=== PATIENT | male | born 1945 | race Caucasian/White ===

== ENCOUNTER 2017-06-24 07:47 | Outpatient (CLI) | payer MEDICARE, BC ==
--- NOTE | 2017-06-24 11:08 | CT ---
CT ANGIOGRAM ABDOMEN AND PELVIS WITH AND WITHOUT IV CONTRAST AND 3D RECONSTRUCTIONS: Date: 06/24/17 HISTORY: Post EVAR repair of an abdominal aortic aneurysm. COMPARISON: 09/10/16. FINDINGS: There is a pneumothorax seen at the left lung base, likely related to a loculated left-sided pneumoth orax, but this was not present on the prior exam. There is mild pleural thickening also seen at the l eft lung base. Large calcified granuloma is present at the right lung base. Postsurgical changes related to repair of abdominal aortic aneurysm are again present with an aortobi iliac endograft noted in place. The aneurysm sac diameter is larger in size compared to the prior exa m, previously measuring 5.9 cm x 5.1 cm in maximal dimensions, and on current study measures 6.5 cm A P x 5.1 cm in maximal dimensions. There is now a focal area of enhancement seen within the aneurysm s ac suggesting endoleak. Celiac and superior mesenteric arteries are patent. There are two right and single left renal arterie s present. The origins of the inferiorly located right renal artery, as well as origin of the left re nal artery are not well visualized. The superiorly located right renal artery is patent. There is a subcentimeter, too small to characterize, hypodense lesion mid portion of right kidney wit h stable hypodense left cystic superior pole left renal lesion again seen which does demonstrate atte nuation coefficient most suggestive of a cyst. The liver demonstrates diminished attenuation related to diffuse fatty infiltration. Spleen, pancreas , and bilateral adrenal glands, as well as urinary bladder, demonstrate a normal CT appearance for ar terial phase of imaging. There is colonic diverticulosis. Fat-containing ventral abdominal wall hernia is again present. IMPRESSION: 1. Pneumothorax at the left lung base which is an interval change from the prior study. This likely represents a loculated pneumothorax. No additional intervening studies are available to document stab ility of this pneumothorax. 2. 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 There is an eccentric low density area seen within the junction of the mid and distal p ortion of the right iliac limb of the graft. The margins of this do not appear well circumscribed, an d this is thought to more likely be related to mixing of contrast in this region. The external iliac and common femoral arteries are patent with atherosclerotic vascular calcifications present. 3. Additional incidental findings are as described above. Above findings concerning pneumothorax at left lung base were discussed with Dr. Mendoza on 06/24/17 a t 13:12 hours. CODE CR. POS: [facility]
[2017-06-24] MEDS ORDERED: ISOVUE-370 76%-LOCM 1 ML ONE (17:17)
== END 2017-06-24 07:48 | disposition home or self-care (01) ==
LOC: CT 07:47
DX: I71.4 Abdominal aortic aneurysm, without rupture (principal); J93.9 Pneumothorax, unspecified
CPT/HCPCS: 74174

== ENCOUNTER 2017-07-27 14:32 | Inpatient (IN) | payer MEDICARE, BC ==
[2017-07-27 15:34] LABS: #Lymphocytes 0.8 thou/uL (1.20-3.40); #Monocytes 1.1 thou/uL (0.11-0.59); #Neutrophils 12.7 thou/uL (1.40-6.50); %Basophils 0.1 % (0.0-1.0); %Eosinophils 0.1 % (0.0-10.0); %Lymphocytes 5.7 % (21.0-51.0); %Monocytes 7.3 % (0.0-10.0); %Neutrophils 86.8 % (42.0-75.0); Hemoglobin 13.2 g/dL (14.0-18.0); Mean Corpuscular HGB CONC 33.1 g/dL (32.0-36.0); Mean Corpuscular Volume 87.8 fl (80.0-94.0); Mean Platelet Volume 7.7 fL (7.4-10.4); Platelet Count 186 thou/uL (130-400); RBC Distribution Width 15.7 % (11.5-14.5); Red Blood Cell (RBC) Count 4.56 mill/uL (4.70-6.10); White Blood Cell (WBC) Count 14.7 thou/uL (4.8-10.8)
[2017-07-27 15:52] LABS: ALT (SGPT) 22 U/L (8-55); AST (SGOT) 25 U/L (5-34); Alkaline Phosphatase 73 U/L (40-150); Anion Gap 16 mmol/L (10-20); BUN (Urea Nitrogen) 16 mg/dL (8.4-25.7); Bilirubin, Total 1.1 mg/dL (0.2-1.2); Calc. Creatinine Clearance 0 mL/min (70-130); Calcium 10.1 mg/dL (7.8-10.44); Carbon Dioxide 23 mmol/L (23-31); Chloride 100 mmol/L (98-107); Estimated GFR-MDRD 56; Globulin 3.5 g/dL (2.4-3.5); Glucose 197 mg/dL (83-110); Potassium 4.4 mmol/L (3.5-5.1); Protein, Total 7.5 g/dL (5.8-8.1); Sodium 135 mmol/L (136-145)
[2017-07-27 15:56] LABS: CKMB 0.5 ng/mL (0-6.6); Troponin I 0.019 ng/mL (< 0.028)
[2017-07-27 17:12] LABS: CK (CPK) 57 U/L (30-200); Lipase 12 U/L (8-78)
--- NOTE | 2017-07-27 17:20 | RAD ---
CHEST ONE VIEW 07/27/17 HISTORY: Dyspnea. COMPARISON: Chest two view 10/18/16. FINDINGS: Chronic pleural and parenchymal changes left lung base. There is a new nodule right lung base. The ca rdiac silhouette and mediastinal contours are similar. No pneumothorax. IMPRESSION: 1. Post thoracotomy changes of left hemithorax. Chronic pleural and parenchymal changes. 2. The right lower lung nodule seen on the prior CT examination is a calcified granuloma. 3. Left lower lobe likely a bulla. POS: [facility]
[2017-07-27 17:42] LABS: Bilirubin Negative (Negative); Blood, Urine Negative (Negative); Clarity CLEAR (Clear); Glucose, Urine (Dipstick) Negative (Negative); Leukocyte Negative (Negative); Nitrite Negative (Negative); Protein, Urine (Dipstick) 30 mg/dL (Neg-Trace); Specific Gravity, Urine 1.024 (1.002-1.036)
[2017-07-27 17:44] LABS: Bacteria/HPF None Seen HPF (None Seen); Hyaline Casts/LPF 0-3 HYALINE CAST LPF (0-3 Hyaline); Pathc Cast-AUWi Flag 0.13 (0-2.49); RBC/HPF 0-3 HPF (0-3); Squamous Epithelial 0-3 HPF (0-3); WBC/HPF 0-3 HPF (0-3)
[2017-07-27] MEDS ORDERED: Ondansetron HCl/PF 4 MG/2 ML Vial IVP PRN (18:14)
[2017-07-27] MEDS ORDERED: Bisacodyl 5 MG TAB PO PRN (18:14)
[2017-07-27] MEDS ORDERED: cefTRIAXone\\ROCEPHIN 1 GM in Sodium Chloride 0.9% 100 ML IVPB SCH (18:15)
[2017-07-27 18:44] LABS: Troponin I 0.025 ng/mL (< 0.028)
[2017-07-27] MEDS ORDERED: Dextrose 50% Abboject 50 ML SYRINGE SLOW IVP PRN (18:58)
[2017-07-27] MEDS ORDERED: Dextrose 5% in Water 1,000 ML IV PRN (18:58)
[2017-07-27] MEDS ORDERED: VANCOMYCIN/ RENALLY ADJUST ANTIBIOTICS IVPB PRN (18:59)
--- NOTE | 2017-07-27 19:28 | HP ---
PRIMARY CARE PHYSICIAN: Nga Graham M.D. CHIEF COMPLAINT: Generalized weakness. HISTORY OF PRESENT ILLNESS: Mr. Hurst is a pleasant 71-year-old gentleman who was seen at [facility] on 07/27/2017. He reportedly had an episode of weakness 3 days ago when he got up during the night to go to the bath room. He reportedly fell down while getting back into the bed, but did not hit his head. He continu ed to be weak whole of yesterday. Today, he got up, made coffee and then went to bed. Subsequently, he got up and went to the bathroom. He could not get up from the commode. EMS was called and he wa s brought to the emergency room. He denies fever, but reports having chills. He denies any vomiting. He denies any shortness of cathryn th. He denies any dysuria or increased frequency of urination. He denies any diarrhea. REVIEW OF SYSTEMS: The following complete review of systems was negative, unless otherwise mentioned in the HPI or below: Constitutional: Weight loss or gain, ability to conduct usual activities. Skin: Rash, itching. Eyes: Double vision, pain. ENT/Mouth: Nose bleeding, neck stiffness, pain, tenderness. Cardiovascular: Palpitations, dyspnea on exertion, orthopnea. Respiratory: Shortness of breath, wheezing, cough, hemoptysis, fever or night sweats. Gastrointestinal: Poor appetite, abdominal pain, heartburn, nausea, vomiting, constipation, or diarr hea. Genitourinary: Urgency, frequency, dysuria, nocturia. Musculoskeletal: Pain, swelling. Neurologic/Psychiatric: Anxiety, depression. Allergy/Immunologic: Skin rash, bleeding tendency. PAST MEDICAL HISTORY: Significant for hypertension, dyslipidemia, coronary artery disease, hypothyro idism, atrial fibrillation, obstructive sleep apnea syndrome, abdominal aortic aneurysm status post r epair and lung mass, status post surgery and diabetes mellitus type 2. PAST SURGICAL HISTORY: Significant for a lung mass resection, coronary artery bypass graft x3, abdom inal aortic aneurysm repair, colonoscopy and synovial cyst removed from back. FAMILY HISTORY: His father of heart attack. SOCIAL HISTORY: The patient is an ex-smoker. He drinks alcohol occasionally. He denies any recreat ional drug use. ALLERGIES: No known drug allergies. CURRENT MEDICATIONS: Include aspirin 81 mg daily, levothyroxine 175 mcg daily, metformin 500 mg 2 ti mes a day, atorvastatin 40 mg daily, Spiriva 18 mcg inhalation daily, digoxin 125 mcg daily and Eliqu is 5 mg 2 times a day. CODE STATUS: I discussed his code status. He is FULL CODE. PHYSICAL EXAMINATION: GENERAL: Mr. Hurst is awake and alert, not in acute distress. VITAL SIGNS: Blood pressure is 127/69, pulse is 91. His breathing at rate of 25 and saturating 97% on room air. He is afebrile. EYES: No scleral icterus. No conjunctival pallor. ENT: Dry mucosal membranes, no oropharyngeal erythema or exudates. NECK: Supple, nontender, normal range of movement. Trachea is midline. RESPIRATORY: Accessory muscles of breathing are not active. Chest wall movements are symmetric bila terally. LUNGS: Clear to auscultation, without wheeze, rhonchi or crepitations. CARDIOVASCULAR: S1 and S2 are heard, regular. LUNGS: Peripheral pulses palpable. No carotid bruit, no pericardial rub. ABDOMEN: Soft, nontender, bowel sounds heard, no hepatomegaly, no splenomegaly. SKIN: No rashes or subcutaneous nodules. MUSCULOSKELETAL: Power is 5/5 in all 4 extremities. Normal range of movement at all major extremity joints. NEUROLOGIC: Cranial nerves II-XII are intact. Deep tendon reflexes are 2+. LYMPHATIC: No cervical lymphadenopathy. PSYCHIATRIC: Normal mood, normal affect, patient is oriented to person, place, and time. LABORATORY DATA: Mr. Horner labs and investigations were reviewed. I reviewed his electrocardiog stan, which shows normal sinus rhythm, no ST changes to suggest an acute coronary syndrome. I also re viewed his chest x-ray, which does not show any pulmonary infiltrates. He has leukocytosis with 14,7 00 white cells, of which 86.8% are neutrophils. He has normocytic anemia with hemoglobin 13.2 and a normal platelet count. He is hyponatremic, with sodium of 135, normal potassium, normal creatinine, elevated lactic acid of 2.8, unremarkable liver profile, normal lipase and troponin I that is normal x2. Urinalysis is positive only for protein. ASSESSMENT AND PLAN: Mr. Hurst is a pleasant 71-year-old gentleman who was seen at [facility] on 07/27/2017. His problem list includes: 1. Sepsis: Mr. Hurst' presentation meets the criteria for sepsis, with suspected source of infec tion either in the respiratory tract given his history of cough or bloodstream, given his history of chills. He will be admitted to the hospital and started on broad spectrum antibiotics, including van comycin, ceftriaxone and azithromycin. I will await blood cultures. I should note that his influenz a screen is negative. 2. Generalized weakness: Most likely secondary to sepsis. We will request walking program consulta tion. 3. Coronary artery disease: Appears stable. 4. Hypothyroidism: We will continue Synthroid. We will check TSH level. 5. Diabetes mellitus. Start Accu-Cheks, insulin sliding scale. 6. Hyponatremia: Mild, likely asymptomatic. I will recheck his sodium level. 7. Atrial fibrillation: He had Watchman procedure in the past. We will continue Eliquis, and digox in. 8. Pulmonary nodule: He has a pulmonary nodule in the right lower lobe. The radiologist impression is that it is a calcified granuloma also seen on prior CT examination. Many thanks for allowing me to participate in your patient's care. Please feel free to contact me wi th any questions or concerns. LEVEL OF RISK: High. LEFT OF COMPLEXITY: High.
[2017-07-27 19:29] VITALS: BMI 31.1
[2017-07-27] MEDS: Sodium Chloride 0.9% 1,000 ML IV SCH (20:29)
[2017-07-27 21:06] LABS: Lactic Acid 2.6 mmol/L (0.5-2.2)
[2017-07-27 21:10] LABS: Troponin I 0.025 ng/mL (< 0.028)
[2017-07-27] MEDS: Vancomycin HCl 1.25 GM in Sodium Chloride 0.9% 250 ML 250 ML IVPB SCH ×2 (21:43→22:52)
[2017-07-27] MEDS: Azithromycin 500 MG in Sodium Chloride 0.9% 250 ML 250 ML IVPB SCH (21:44)
[2017-07-28 05:31] LABS: #Lymphocytes 1.2 thou/uL (1.20-3.40); #Monocytes 1.5 thou/uL (0.11-0.59); #Neutrophils 12.6 thou/uL (1.40-6.50); %Basophils 0.1 % (0.0-1.0); %Lymphocytes 7.9 % (21.0-51.0); %Monocytes 9.6 % (0.0-10.0); %Neutrophils 82.3 % (42.0-75.0); Hemoglobin 11.7 g/dL (14.0-18.0); Mean Corpuscular HGB CONC 33.3 g/dL (32.0-36.0); Mean Corpuscular Hemoglobin 29.4 pg (27.0-31.0); Mean Corpuscular Volume 88.1 fl (80.0-94.0); Mean Platelet Volume 7.5 fL (7.4-10.4); Platelet Count 152 thou/uL (130-400); RBC Distribution Width 15.7 % (11.5-14.5); Red Blood Cell (RBC) Count 3.98 mill/uL (4.70-6.10); White Blood Cell (WBC) Count 15.3 thou/uL (4.8-10.8)
[2017-07-28 05:41] LABS: Anion Gap 13 mmol/L (10-20); BUN (Urea Nitrogen) 13 mg/dL (8.4-25.7); Calc. Creatinine Clearance 87 mL/min (70-130); Calcium 9.1 mg/dL (7.8-10.44); Carbon Dioxide 24 mmol/L (23-31); Chloride 100 mmol/L (98-107); Estimated GFR-MDRD 59; Glucose 210 mg/dL (83-110); Potassium 3.8 mmol/L (3.5-5.1); Sodium 133 mmol/L (136-145)
[2017-07-28] MEDS: Sodium Chloride 0.9% 1,000 ML IV SCH ×2 (06:31→08:51)
[2017-07-28] MEDS: HumaLOG 300 UNITS/3 ML VIAL SC PRN ×3 (08:53→18:22)
[2017-07-28] MEDS ORDERED: FLU VACC TS2017-18 (>65YR) 0.5 ML SYRINGE IM ONE (09:00)
[2017-07-28] MEDS: Vancomycin HCl 1.25 GM in Sodium Chloride 0.9% 250 ML 250 ML IVPB SCH ×2 (09:58→21:44)
--- NOTE | 2017-07-28 11:32 | PDOC.PN ---
- Subjective Encounter Start Date: 07/28/17 Encounter Start Time: 11:30 Patient seen and examined, states he feels better than yesterday but not fully back to normal. Was able to ambulate to the bathroom but got short of breath after this. at bedside, all questions answered. - Objective Resuscitation Status: Resuscitation Status FULL:Full Resuscitation Vital Signs & Weight: Vital Signs (12 hours) Temp Pulse Resp BP BP Pulse Ox 07/28/17 07:20 98.9 F 93 20 119/63 119/63 95 07/28/17 04:00 98.5 F 91 16 115/66 94 L 07/28/17 01:11 97 18 07/28/17 00:00 98.9 F 94 20 111/56 L 97 07/27/17 23:46 96 Weight Weight 242 lb 3.2 oz I&O: 07/27/17 07/28/17 07/29/17 06:59 06:59 06:59 Intake Total 2138 Output Total 575 Balance 1563 Result Diagrams: 07/28/17 05:08 07/28/17 05:08 Additional Labs: Accuchecks 07/28/17 07/27/17 05:42 21:05 POC Glucose 231 H 318 H Phys Exam - Physical Examination Constitutional: NAD HEENT: PERRLA, moist MMs Neck: no nodes, no JVD coughing, coarse breathe sounds Cardiovascular: RRR, no significant murmur Gastrointestinal: soft, non-tender Musculoskeletal: pulses present, edema present (trace) Neurological: non-focal, normal sensation Lymphatic: no nodes Psychiatric: normal affect, A&O x 3 Skin: no rash, normal turgor Dx/Plan (1) URI (upper respiratory infection) Code(s): J06.9 - ACUTE UPPER RESPIRATORY INFECTION, UNSPECIFIED Status: Acute (2) Paroxysmal atrial fibrillation Code(s): I48.0 - PAROXYSMAL ATRIAL FIBRILLATION Status: Acute (3) CAD (coronary artery disease) Code(s): I25.10 - ATHSCL HEART DISEASE OF [place] CORONARY ARTERY W/O ANG PCTRS Status: Chronic (4) Diabetes type 2, controlled Code(s): E11.9 - TYPE 2 DIABETES MELLITUS WITHOUT COMPLICATIONS Status: Chronic (5) Dyslipidemia Code(s): E78.5 - HYPERLIPIDEMIA, UNSPECIFIED Status: Chronic (6) Hypertension Code(s): I10 - ESSENTIAL (PRIMARY) HYPERTENSION Status: Chronic (7) Hypothyroidism Code(s): E03.9 - HYPOTHYROIDISM, UNSPECIFIED Status: Chronic (8) Obesity (BMI 30.0-34.9) Code(s): E66.9 - OBESITY, UNSPECIFIED Status: Chronic - Plan * continue with abx for now * afebrile * labs acceptable * patient slowly starting to ambulate * continue current plan of care w/ no changes * case and plan d/w patient and at length, they understand and agree with this plan
[2017-07-28] MEDS ORDERED: cefTRIAXone\\ROCEPHIN 1 GM, Syringe 0.4 ML in Sterile Water 9.6 ML SLOW IVP SCH (17:00)
[2017-07-28] MEDS ORDERED: Furosemide 40 MG/4 ML VIAL SLOW IVP SCH (19:00)
[2017-07-28] MEDS ORDERED: Nitroglycerin 0.4 MG TAB (25 Tab Bottle) SL PRN (19:52)
--- NOTE | 2017-07-28 19:55 | RAD ---
CHEST ONE VIEW: History: Weakness. Comparison: Prior day. FINDINGS: There is a lingular airspace opacity. There appears to be a bullae in the left lung base. Left effusi on is present. Right lung is relatively clear. IMPRESSION: 1. Worsening lingular airspace opacity as well as enlargement of left layering pleural effusion. 2. Bullae in the left lung base. POS: [facility]
[2017-07-28] MEDS: Azithromycin 500 MG in Sodium Chloride 0.9% 250 ML 250 ML IVPB SCH (20:21)
[2017-07-28] MEDS ORDERED: Simvastatin 40 MG TAB PO SCH (21:00)
[2017-07-29] MEDS ORDERED: Levothyroxine Sodium 100 MCG TAB PO SCH (06:00)
[2017-07-29] MEDS ORDERED: Nitroglycerin 0.4 MG TAB (25 Tab Bottle) SL PRN (08:26)
[2017-07-29] MEDS ORDERED: Digoxin 0.125 MG TAB PO SCH (09:00)
[2017-07-29] MEDS ORDERED: Multivit, Therapeutic 1 TAB PO SCH (09:00)
[2017-07-29 09:25] LABS: #Lymphocytes 1.1 thou/uL (1.20-3.40); #Monocytes 1.1 thou/uL (0.11-0.59); #Neutrophils 12.2 thou/uL (1.40-6.50); %Basophils 0.1 % (0.0-1.0); %Eosinophils 0.1 % (0.0-10.0); %Lymphocytes 7.5 % (21.0-51.0); %Monocytes 7.4 % (0.0-10.0); %Neutrophils 84.9 % (42.0-75.0); Hemoglobin 11.3 g/dL (14.0-18.0); Mean Corpuscular Hemoglobin 29.9 pg (27.0-31.0); Mean Platelet Volume 7.9 fL (7.4-10.4); Platelet Count 149 thou/uL (130-400); RBC Distribution Width 15.7 % (11.5-14.5); Red Blood Cell (RBC) Count 3.77 mill/uL (4.70-6.10); White Blood Cell (WBC) Count 14.4 thou/uL (4.8-10.8)
[2017-07-29 09:33] LABS: Vancomycin, Trough 7.8 ug/mL
[2017-07-29 09:34] LABS: Anion Gap 13 mmol/L (10-20); BUN (Urea Nitrogen) 9 mg/dL (8.4-25.7); Calc. Creatinine Clearance 91 mL/min (70-130); Calcium 9.1 mg/dL (7.8-10.44); Carbon Dioxide 23 mmol/L (23-31); Chloride 102 mmol/L (98-107); Estimated GFR-MDRD 62; Glucose 252 mg/dL (83-110); Potassium 3.7 mmol/L (3.5-5.1); Sodium 134 mmol/L (136-145)
[2017-07-29] MEDS: Clopidogrel Bisulfate 75 MG TAB PO SCH (10:23)
[2017-07-29] MEDS: Aspirin 81 mg Enteric Coated Tablet PO SCH (10:23)
[2017-07-29] MEDS: Digoxin 0.125 MG TAB PO SCH (10:23)
[2017-07-29] MEDS: Multivit, Therapeutic 1 TAB PO SCH (10:24)
[2017-07-29] MEDS: Vancomycin HCl 1.25 GM in Sodium Chloride 0.9% 250 ML 250 ML IVPB SCH (10:25)
[2017-07-29] MEDS: Vancomycin HCl 1.5 GM in Sodium Chloride 0.9% 250 ML 300 ML IVPB SCH ×2 (11:47→18:53)
[2017-07-29] MEDS: HumaLOG 300 UNITS/3 ML VIAL SC PRN ×2 (11:58→17:34)
--- NOTE | 2017-07-29 13:08 | PDOC.PN ---
- Subjective Encounter Start Date: 07/29/17 Encounter Start Time: 08:00 Pt seen for followup re: sepsis. Had fever yesterday. Denies nausea or vomiting. Reports weakness. - Objective Resuscitation Status: Resuscitation Status FULL:Full Resuscitation MAR Reviewed: Yes Vital Signs & Weight: Vital Signs (12 hours) Temp Pulse Resp BP BP Pulse Ox 07/29/17 11:50 99.5 F 93 16 126/62 95 07/29/17 10:22 97.8 F 94 20 130/73 97 07/29/17 09:45 97.8 F 94 20 07/29/17 04:00 97 18 111/56 L Weight Weight 242 lb 3.2 oz I&O: 07/28/17 07/29/17 07/30/17 06:59 06:59 06:59 Intake Total 2138 1994 Output Total 575 1775 Balance 1563 220 Result Diagrams: 07/29/17 09:01 07/29/17 09:01 Additional Labs: Accuchecks 07/29/17 07/29/17 07/28/17 11:56 05:27 20:35 POC Glucose 242 H 183 H 179 H 07/28/17 17:29 POC Glucose 196 H EKG Reviewed by me: Yes (Tele: NSR) Phys Exam - Physical Examination Obese HEENT: PERRLA, moist MMs, sclera anicteric, oral pharynx no lesions Neck: no nodes, no JVD, supple, full ROM Respiratory: no wheezing, no rales, no rhonchi, clear to auscultation bilateral Cardiovascular: RRR, no rub Gastrointestinal: soft, non-tender, positive bowel sounds Neurological: moves all 4 limbs Psychiatric: normal affect, A&O x 3 Dx/Plan (1) Sepsis Code(s): A41.9 - SEPSIS, UNSPECIFIED ORGANISM Status: Acute (2) Paroxysmal atrial fibrillation Code(s): I48.0 - PAROXYSMAL ATRIAL FIBRILLATION Status: Chronic (3) AAA (abdominal aortic aneurysm) Code(s): I71.4 - ABDOMINAL AORTIC ANEURYSM, WITHOUT RUPTURE Status: Chronic (4) CAD (coronary artery disease) Code(s): I25.10 - ATHSCL HEART DISEASE OF [place] CORONARY ARTERY W/O ANG PCTRS Status: Chronic (5) Diabetes type 2, controlled Code(s): E11.9 - TYPE 2 DIABETES MELLITUS WITHOUT COMPLICATIONS Status: Chronic (6) Dyslipidemia Code(s): E78.5 - HYPERLIPIDEMIA, UNSPECIFIED Status: Chronic (7) Hypertension Code(s): I10 - ESSENTIAL (PRIMARY) HYPERTENSION Status: Chronic (8) Hypothyroidism Code(s): E03.9 - HYPOTHYROIDISM, UNSPECIFIED Status: Chronic (9) Obesity (BMI 30.0-34.9) Code(s): E66.9 - OBESITY, UNSPECIFIED Status: Chronic - Plan continue antibiotics, PT/OT, out of bed/ambulate * . Pt continues to spike fevers, change ceftriaxone to IV meropenem. Await blood cultures. Urine cultures negative (final). Continue accuchecks, insulin sliding scale. If blood cultures positive, may need ID consult (pt had AAA repair). Ambulate patient. Review of Systems - Review of Systems Constitutional: fever, weakness. negative: chills, sweats, malaise Respiratory: negative: Cough, Dry, Shortness of Breath, Hemoptysis, SOB with Excertion, Pleuritic Pain, Sputum, Wheezing Cardiovascular: negative: chest pain, palpitations, orthopnea, paroxysmal nocturnal dyspnea, edema, light headedness Gastrointestinal: negative: Nausea, Vomiting, Abdominal Pain, Diarrhea, Constipation, Melena, Hematochezia Genitourinary: negative: Dysuria, Frequency, Incontinence, Hematuria, Retention - Medications/Allergies Allergies/Adverse Reactions: Allergies Allergy/AdvReac Type Severity Reaction Status Date / Time amoxicillin AdvReac Mild Rash Verified 12/21/16 15:26 Medications: Current Medications Albuterol/Ipratropium (Duoneb) 3 ml NEB Q6H PRN PRN Reason: SOB &/or Wheezing Last Admin: 07/28/17 19:11 Dose: 3 ml Aspirin (Ecotrin) 81 mg PO DAILY [facility] Last Admin: 07/29/17 10:23 Dose: 81 mg Atorvastatin Calcium (Lipitor) 20 mg PO HS [facility] Bisacodyl (Dulcolax) 10 mg PO DAILYPRN PRN PRN Reason: Constipation Clopidogrel Bisulfate (Plavix) 75 mg PO DAILY [facility] Last Admin: 07/29/17 10:23 Dose: 75 mg Dextrose/Water (Dextrose 50%) 25 gm SLOW IVP PRN PRN PRN Reason: Hypoglycemia Digoxin (Lanoxin) 0.125 mg PO DAILY [facility] Last Admin: 07/29/17 10:23 Dose: 0.125 mg Glucagon (Glucagon) 1 mg IM PRN PRN PRN Reason: Hypoglycemia Azithromycin 500 mg/ Sodium (Chloride) 250 mls @ 250 mls/hr IVPB Q24HR [facility] Last Admin: 07/28/17 20:21 Dose: 250 mls Ceftriaxone Sodium 1 gm/ (Syringe 0.4 ml/ Sterile Water) 10 mls @ 120 mls/hr SLOW IVP 1700 [facility] Last Admin: 07/28/17 17:42 Dose: 10 mls Dextrose/Water (D5w) 1,000 mls @ 0 mls/hr IV .Q0M PRN; As Directed PRN Reason: Hypoglycemia Vancomycin HCl 1.5 gm/ Sodium (Chloride) 300 mls @ 200 mls/hr IVPB 0200,1000, 1800 [facility] Last Admin: 07/29/17 11:47 Dose: 300 mls Insulin Human Lispro (Humalog) 0 units SC .MILD SLIDING SCALE PRN PRN Reason: Mild Correctional Scale Last Admin: 07/29/17 11:58 Dose: 3 unit Levothyroxine Sodium (Synthroid) 200 mcg PO 0600 [facility] Metformin HCl (Glucophage) 500 mg PO BID-[facility] Miscellaneous Medication (Pharmacy To Dose) 1 each IVPB PRN PRN PRN Reason: Pharmacy to dose Multivitamins (Theragran) 1 tab PO DAILY [facility] Last Admin: 07/29/17 10:24 Dose: 1 tab Nitroglycerin (Nitrostat) 0.4 mg SL Q5MIN PRN PRN Reason: Chest Pain Ondansetron HCl (Zofran) 4 mg IVP Q6H PRN PRN Reason: Nausea/Vomiting Sodium Chloride (Flush - Normal Saline) 10 ml IVF Q12HR [facility] Last Admin: 07/29/17 10:24 Dose: 10 ml Sodium Chloride (Flush - Normal Saline) 10 ml IVF PRN PRN PRN Reason: Saline Flush
[2017-07-29] MEDS ORDERED: Meropenem 1 GM in Sodium Chloride 0.9% 100 ML IVPB SCH (14:00)
[2017-07-29] MEDS: Meropenem 1 GM in Sterile Water 20 ML SLOW IVP SCH ×2 (15:22→21:34)
[2017-07-29] MEDS: Acetaminophen 325 MG TAB PO PRN (17:34)
[2017-07-29] MEDS: metFORMIN 500 MG TAB PO SCH (17:34)
[2017-07-29] MEDS: Azithromycin 500 MG in Sodium Chloride 0.9% 250 ML 250 ML IVPB SCH (21:34)
[2017-07-29] MEDS: Atorvastatin Calcium 20 MG TAB PO SCH (21:34)
--- NOTE | 2017-07-30 00:25 | CON ---
DATE OF CONSULTATION: 07/29/2017 REASON FOR CONSULTATION: Atrial arrhythmias. HISTORY OF PRESENT ILLNESS: Mr. Hurst is a very pleasant 71-year-old man. The patient has a long complicated cardiac history as well as other medical history relatively complicated. Patient was admitted on this occasion with systemic inflammatory response and came to the hospital wi th generalized weakness, and fell when he tried to get up out of bed at night. He had no fever, but did have chills. REVIEW OF SYSTEMS: Constitutional: No significant weight gain or loss. Vision: No changes. Heari ng: No changes. Pulmonary: Positive for cough and wheezing. Cardiac: No chest pain. Gastrointest inal: No nausea, vomiting, diarrhea. Skin: No rashes. Neurologic: No unilateral weakness or numb ness. Psychiatric: No unusual depression or anxiety. PAST MEDICAL HISTORY: 1. Previous coronary artery bypass grafting. 2. History of atrial fibrillation with transient ischemic attack. 3. History of gastrointestinal bleeding. 4. History of Watchman placement. 5. Abdominal aortic aneurysm treated percutaneously with further percutaneous therapy. 6. History of lung mass requiring surgery. PAST SURGICAL HISTORY: As outlined above. ALLERGIES: None. MEDICATIONS PRIOR TO ADMISSION: 1. Aspirin. 2. Plavix. 3. Atorvastatin. PHYSICAL EXAMINATION: GENERAL: This is a pleasant elderly gentleman in no distress. VITAL SIGNS: Blood pressure 117/69, pulse 90, it is irregular. EYES: Sclerae nonicteric. Mouth mucous membranes are moist. NECK: Supple, no lymphadenopathy. LUNGS: Currently not wheezing. He had some wheezing earlier, but it seemed to be upper airway when he coughed, it went away. CARDIAC: Normal S1, normal S2. ABDOMEN: Soft, nontender. EXTREMITIES: No clubbing, no cyanosis. There is no significant edema. LABORATORY AND X-RAY FINDINGS: EKG now sinus rhythm, earlier atrial tachycardia versus atrial flutte r. ASSESSMENT: 1. Paroxysmal atrial arrhythmia. 2. Coronary artery disease, previous bypass surgery. 3. History of Watchman implantation. 4. Abdominal aortic aneurysm repair. 5. ?Pneumonia versus systemic inflammatory response syndrome. PLAN: 1. Continue antibiotics. 2. Aspirin. 3. Plavix. 4. We will check BNP tomorrow. We will follow with you. 5. Continue digoxin.
[2017-07-30] MEDS: Vancomycin HCl 1.5 GM in Sodium Chloride 0.9% 250 ML 300 ML IVPB SCH ×2 (01:49→10:35)
[2017-07-30] MEDS: Levothyroxine Sodium 100 MCG TAB PO SCH (05:03)
[2017-07-30] MEDS: Meropenem 1 GM in Sterile Water 20 ML SLOW IVP SCH ×3 (05:03→23:57)
[2017-07-30 05:21] LABS: #Monocytes 0.9 thou/uL (0.11-0.59); %Basophils 0.2 % (0.0-1.0); %Eosinophils 0.2 % (0.0-10.0); %Lymphocytes 8.1 % (21.0-51.0); %Monocytes 7.9 % (0.0-10.0); %Neutrophils 83.5 % (42.0-75.0); Hemoglobin 11.3 g/dL (14.0-18.0); Mean Corpuscular Hemoglobin 29.2 pg (27.0-31.0); Mean Corpuscular Volume 88.6 fl (80.0-94.0); Mean Platelet Volume 7.6 fL (7.4-10.4); Platelet Count 158 thou/uL (130-400); RBC Distribution Width 15.6 % (11.5-14.5); Red Blood Cell (RBC) Count 3.86 mill/uL (4.70-6.10); White Blood Cell (WBC) Count 11.9 thou/uL (4.8-10.8)
[2017-07-30 05:50] LABS: Anion Gap 13 mmol/L (10-20); BUN (Urea Nitrogen) 10 mg/dL (8.4-25.7); Calc. Creatinine Clearance 104 mL/min (70-130); Carbon Dioxide 22 mmol/L (23-31); Chloride 103 mmol/L (98-107); Estimated GFR-MDRD 73; Glucose 181 mg/dL (83-110); Potassium 3.8 mmol/L (3.5-5.1); Sodium 134 mmol/L (136-145)
[2017-07-30] MEDS: Digoxin 0.125 MG TAB PO SCH (09:16)
[2017-07-30] MEDS: Multivit, Therapeutic 1 TAB PO SCH (09:16)
[2017-07-30] MEDS: Clopidogrel Bisulfate 75 MG TAB PO SCH (09:16)
[2017-07-30] MEDS: metFORMIN 500 MG TAB PO SCH ×2 (09:16→17:17)
[2017-07-30] MEDS: Aspirin 81 mg Enteric Coated Tablet PO SCH (09:18)
[2017-07-30 09:20] LABS: Vancomycin, Trough 21.1 ug/mL
--- NOTE | 2017-07-30 10:53 | PDOC.PN ---
- Subjective Encounter Start Date: 07/30/17 Encounter Start Time: 07:20 Pt seen for followup re: gout flare. Complains of left ankle pain, had gout flares in the past which felt the same. No fevers yesterday or today. No diarrhea. - Objective Resuscitation Status: Resuscitation Status FULL:Full Resuscitation MAR Reviewed: Yes Vital Signs & Weight: Vital Signs (12 hours) Temp Pulse Resp BP Pulse Ox 07/30/17 09:16 96 07/30/17 08:00 98.2 F 96 17 125/77 94 L 07/30/17 04:00 98.4 F 90 18 114/58 L 96 Weight Weight 242 lb 3.2 oz I&O: 07/29/17 07/30/17 07/31/17 06:59 06:59 06:59 Intake Total 1994 1310 120 Output Total 5 Balance 220 1310 120 Result Diagrams: 07/30/17 04:47 07/30/17 04:47 Additional Labs: Accuchecks 07/30/17 07/29/17 07/29/17 06:09 20:05 11:56 POC Glucose 184 H 210 H 242 H EKG Reviewed by me: Yes (Tele: a. charmaine) Phys Exam - Physical Examination Obesity HEENT: moist MMs Neck: supple Respiratory: clear to auscultation bilateral Cardiovascular: irregular Gastrointestinal: soft, non-tender, positive bowel sounds Musculoskeletal: pulses present L ankle mild swelling, tenderness Neurological: moves all 4 limbs Psychiatric: normal affect Dx/Plan (1) Gout flare Code(s): M10.9 - GOUT, UNSPECIFIED Status: Acute (2) Sepsis Code(s): A41.9 - SEPSIS, UNSPECIFIED ORGANISM Status: Acute (3) Paroxysmal atrial fibrillation Code(s): I48.0 - PAROXYSMAL ATRIAL FIBRILLATION Status: Chronic (4) AAA (abdominal aortic aneurysm) Code(s): I71.4 - ABDOMINAL AORTIC ANEURYSM, WITHOUT RUPTURE Status: Chronic (5) CAD (coronary artery disease) Code(s): I25.10 - ATHSCL HEART DISEASE OF [place] CORONARY ARTERY W/O ANG PCTRS Status: Chronic (6) Diabetes type 2, controlled Code(s): E11.9 - TYPE 2 DIABETES MELLITUS WITHOUT COMPLICATIONS Status: Chronic (7) Dyslipidemia Code(s): E78.5 - HYPERLIPIDEMIA, UNSPECIFIED Status: Chronic (8) Hypertension Code(s): I10 - ESSENTIAL (PRIMARY) HYPERTENSION Status: Chronic (9) Hypothyroidism Code(s): E03.9 - HYPOTHYROIDISM, UNSPECIFIED Status: Chronic (10) Obesity (BMI 30.0-34.9) Code(s): E66.9 - OBESITY, UNSPECIFIED Status: Chronic - Plan plan discussed w/ family, continue antibiotics, PT/OT, out of bed/ambulate, DVT proph w/SCDs * . Start colchicine trial. Continue IV antibiotics as below. Continue accuchecks, insulin. Ambulate patient. Discontinue antibiotics once final blood culture report available. Review of Systems - Review of Systems Constitutional: negative: fever, chills, sweats, weakness, malaise Respiratory: negative: Cough, Dry, Shortness of Breath, Hemoptysis, SOB with Excertion, Pleuritic Pain, Sputum, Wheezing Cardiovascular: negative: chest pain, palpitations, orthopnea, paroxysmal nocturnal dyspnea, edema, light headedness Musculoskeletal: Other (ankle pain) - Medications/Allergies Allergies/Adverse Reactions: Allergies Allergy/AdvReac Type Severity Reaction Status Date / Time amoxicillin AdvReac Mild Rash Verified 12/21/16 15:26 Medications: Current Medications Acetaminophen (Tylenol) 650 mg PO Q6H PRN PRN Reason: Headache/Fever or Pain Last Admin: 07/29/17 17:34 Dose: 650 mg Albuterol/Ipratropium (Duoneb) 3 ml NEB Q6H PRN PRN Reason: SOB &/or Wheezing Last Admin: 07/28/17 19:11 Dose: 3 ml Aspirin (Ecotrin) 81 mg PO DAILY [facility] Last Admin: 07/30/17 09:18 Dose: 81 mg Atorvastatin Calcium (Lipitor) 20 mg PO HS [facility] Last Admin: 07/29/17 21:34 Dose: 20 mg Bisacodyl (Dulcolax) 10 mg PO DAILYPRN PRN PRN Reason: Constipation Clopidogrel Bisulfate (Plavix) 75 mg PO DAILY [facility] Last Admin: 07/30/17 09:16 Dose: 75 mg Colchicine (Colcrys) 0.6 mg PO ONE [facility] Colchicine (Colcrys) 0.6 mg PO BID [facility] Stop: 07/31/17 09:01 Dextrose/Water (Dextrose 50%) 25 gm SLOW IVP PRN PRN PRN Reason: Hypoglycemia Digoxin (Lanoxin) 0.125 mg PO DAILY [facility] Last Admin: 07/30/17 09:16 Dose: 0.125 mg Glucagon (Glucagon) 1 mg IM PRN PRN PRN Reason: Hypoglycemia Azithromycin 500 mg/ Sodium (Chloride) 250 mls @ 250 mls/hr IVPB Q24HR [facility] Last Admin: 07/29/17 21:34 Dose: 250 mls Dextrose/Water (D5w) 1,000 mls @ 0 mls/hr IV .Q0M PRN; As Directed PRN Reason: Hypoglycemia Meropenem 1 gm/ Sterile Water 20 mls @ 240 mls/hr SLOW IVP Q8HR [facility] Last Admin: 07/30/17 05:03 Dose: 20 mls Vancomycin HCl 1.25 gm/ Sodium (Chloride) 250 mls @ 166.667 mls/hr IVPB 0400, 1200,2000 [facility] Insulin Human Lispro (Humalog) 0 units SC .MILD SLIDING SCALE PRN PRN Reason: Mild Correctional Scale Last Admin: 07/29/17 17:34 Dose: 3 unit Levothyroxine Sodium (Synthroid) 200 mcg PO 0600 [facility] Last Admin: 07/30/17 05:03 Dose: 200 mcg Metformin HCl (Glucophage) 500 mg PO BID-[facility] Last Admin: 07/30/17 09:16 Dose: 500 mg Miscellaneous Medication (Pharmacy To Dose) 1 each IVPB PRN PRN PRN Reason: Pharmacy to dose Multivitamins (Theragran) 1 tab PO DAILY [facility] Last Admin: 07/30/17 09:16 Dose: 1 tab Nitroglycerin (Nitrostat) 0.4 mg SL Q5MIN PRN PRN Reason: Chest Pain Ondansetron HCl (Zofran) 4 mg IVP Q6H PRN PRN Reason: Nausea/Vomiting Sodium Chloride (Flush - Normal Saline) 10 ml IVF Q12HR [facility] Last Admin: 07/30/17 09:17 Dose: 10 ml Sodium Chloride (Flush - Normal Saline) 10 ml IVF PRN PRN PRN Reason: Saline Flush
[2017-07-30] MEDS ORDERED: Colchicine 0.6 MG TAB PO SCH (11:00)
--- NOTE | 2017-07-30 12:30 | PRG ---
DATE OF SERVICE: 07/30/2017 Mr. Hurst is feeling better today. PHYSICAL EXAMINATION: VITAL SIGNS: He is afebrile. Blood pressure 125/77, pulse is variable. He says he has some paroxys mal atrial fibrillation in the 90s, sometimes he is in sinus. LUNGS: Clear. CARDIAC: Normal S1, normal S2. ABDOMEN: Soft, nontender. EXTREMITIES: No edema. ASSESSMENT: 1. Paroxysmal atrial fibrillation, chronic. 2. Previous Watchman. He does not need to be anticoagulated. 3. Continue current medical regimen. No other changes at this time, he feels better.
[2017-07-30] MEDS: Vancomycin HCl 1.25 GM in Sodium Chloride 0.9% 250 ML 250 ML IVPB SCH ×2 (13:16→20:11)
[2017-07-30] MEDS: HumaLOG 300 UNITS/3 ML VIAL SC PRN ×2 (13:16→17:17)
[2017-07-30] MEDS: Colchicine 0.6 MG TAB PO SCH (20:12)
[2017-07-30] MEDS: Atorvastatin Calcium 20 MG TAB PO SCH (20:12)
[2017-07-30] MEDS: Azithromycin 500 MG in Sodium Chloride 0.9% 250 ML 250 ML IVPB SCH (22:05)
[2017-07-31] MEDS: Vancomycin HCl 1.25 GM in Sodium Chloride 0.9% 250 ML 250 ML IVPB SCH ×3 (04:09→20:16)
[2017-07-31 05:08] LABS: #Lymphocytes 1.2 thou/uL (1.20-3.40); #Monocytes 0.8 thou/uL (0.11-0.59); %Basophils 0.3 % (0.0-1.0); %Eosinophils 0.4 % (0.0-10.0); %Lymphocytes 12.9 % (21.0-51.0); %Monocytes 8.3 % (0.0-10.0); %Neutrophils 78.1 % (42.0-75.0); Hemoglobin 11.6 g/dL (14.0-18.0); Mean Corpuscular HGB CONC 32.4 g/dL (32.0-36.0); Mean Corpuscular Hemoglobin 28.4 pg (27.0-31.0); Mean Corpuscular Volume 87.9 fl (80.0-94.0); Mean Platelet Volume 7.2 fL (7.4-10.4); Platelet Count 205 thou/uL (130-400); RBC Distribution Width 15.8 % (11.5-14.5); Red Blood Cell (RBC) Count 4.07 mill/uL (4.70-6.10)
[2017-07-31] MEDS: Meropenem 1 GM in Sterile Water 20 ML SLOW IVP SCH ×3 (05:21→22:20)
[2017-07-31] MEDS: Levothyroxine Sodium 100 MCG TAB PO SCH (05:21)
[2017-07-31 05:36] LABS: Anion Gap 14 mmol/L (10-20); BUN (Urea Nitrogen) 16 mg/dL (8.4-25.7); Calc. Creatinine Clearance 93 mL/min (70-130); Calcium 9.2 mg/dL (7.8-10.44); Carbon Dioxide 24 mmol/L (23-31); Chloride 102 mmol/L (98-107); Estimated GFR-MDRD 64; Glucose 185 mg/dL (83-110); Potassium 3.6 mmol/L (3.5-5.1); Sodium 136 mmol/L (136-145)
[2017-07-31] MEDS: Aspirin 81 mg Enteric Coated Tablet PO SCH (08:57)
[2017-07-31] MEDS: Clopidogrel Bisulfate 75 MG TAB PO SCH (08:57)
[2017-07-31] MEDS: Digoxin 0.125 MG TAB PO SCH (08:57)
[2017-07-31] MEDS: Multivit, Therapeutic 1 TAB PO SCH (08:57)
[2017-07-31] MEDS: metFORMIN 500 MG TAB PO SCH ×2 (08:57→17:07)
[2017-07-31] MEDS: Colchicine 0.6 MG TAB PO SCH (08:58)
[2017-07-31] MEDS: Acetaminophen 325 MG TAB PO PRN ×2 (09:00→20:28)
[2017-07-31 11:15] LABS: Vancomycin, Trough 19.5 ug/mL
[2017-07-31] MEDS: HumaLOG 300 UNITS/3 ML VIAL SC PRN ×2 (12:35→17:08)
[2017-07-31] MEDS ORDERED: guaiFENesin/DM ER PO PRN (15:57)
[2017-07-31] MEDS ORDERED: guaiFENesin/DM ER PO SCH (16:00)
--- NOTE | 2017-07-31 16:07 | PDOC.PN ---
- Subjective Encounter Start Date: 07/31/17 Encounter Start Time: 07:40 Pt seen for followup re: sepsis. Ambulating, denies ankle pain. Has cough but not expectorating. - Objective Resuscitation Status: Resuscitation Status FULL:Full Resuscitation MAR Reviewed: Yes Vital Signs & Weight: Vital Signs (12 hours) Temp Pulse Resp BP Pulse Ox 07/31/17 11:43 98.4 F 89 17 112/63 96 07/31/17 08:57 95 07/31/17 08:00 98.6 F 95 17 140/80 97 Weight Weight 242 lb 5 oz I&O: 07/30/17 07/31/17 08/01/17 06:59 06:59 06:59 Intake Total 1310 2190 120 Output Total 900 Balance 1310 1290 120 Result Diagrams: 07/31/17 04:56 07/31/17 04:56 Additional Labs: Accuchecks 07/31/17 07/31/17 07/30/17 11:56 05:48 21:01 POC Glucose 233 H 173 H 152 H 07/30/17 16:47 POC Glucose 207 H EKG Reviewed by me: Yes (Tele: sissy montano) Phys Exam - Physical Examination Constitutional: NAD HEENT: moist MMs Neck: supple Respiratory: clear to auscultation bilateral Cardiovascular: RRR Gastrointestinal: soft Knee inflammation improved Neurological: moves all 4 limbs Psychiatric: normal affect Dx/Plan (1) Sepsis Code(s): A41.9 - SEPSIS, UNSPECIFIED ORGANISM Status: Acute (2) Paroxysmal atrial fibrillation Code(s): I48.0 - PAROXYSMAL ATRIAL FIBRILLATION Status: Chronic (3) AAA (abdominal aortic aneurysm) Code(s): I71.4 - ABDOMINAL AORTIC ANEURYSM, WITHOUT RUPTURE Status: Chronic (4) CAD (coronary artery disease) Code(s): I25.10 - ATHSCL HEART DISEASE OF [place] CORONARY ARTERY W/O ANG PCTRS Status: Chronic (5) Diabetes type 2, controlled Code(s): E11.9 - TYPE 2 DIABETES MELLITUS WITHOUT COMPLICATIONS Status: Chronic (6) Dyslipidemia Code(s): E78.5 - HYPERLIPIDEMIA, UNSPECIFIED Status: Chronic (7) Hypertension Code(s): I10 - ESSENTIAL (PRIMARY) HYPERTENSION Status: Chronic (8) Hypothyroidism Code(s): E03.9 - HYPOTHYROIDISM, UNSPECIFIED Status: Chronic (9) Obesity (BMI 30.0-34.9) Code(s): E66.9 - OBESITY, UNSPECIFIED Status: Chronic (10) Gout flare Code(s): M10.9 - GOUT, UNSPECIFIED Status: Resolved - Plan continue antibiotics, PT/OT, out of bed/ambulate * . Cultures negative so far. Start Mucinex. Pt still in a. fib. Review of Systems - Review of Systems Respiratory: Cough, Dry. negative: Shortness of Breath, Hemoptysis, SOB with Excertion, Pleuritic Pain, Sputum, Wheezing Cardiovascular: negative: chest pain, palpitations, orthopnea, paroxysmal nocturnal dyspnea, edema, light headedness - Medications/Allergies Allergies/Adverse Reactions: Allergies Allergy/AdvReac Type Severity Reaction Status Date / Time amoxicillin AdvReac Mild Rash Verified 12/21/16 15:26 Medications: Current Medications Acetaminophen (Tylenol) 650 mg PO Q6H PRN PRN Reason: Headache/Fever or Pain Last Admin: 07/31/17 09:00 Dose: 650 mg Albuterol/Ipratropium (Duoneb) 3 ml NEB Q6H PRN PRN Reason: SOB &/or Wheezing Last Admin: 07/28/17 19:11 Dose: 3 ml Aspirin (Ecotrin) 81 mg PO DAILY [facility] Last Admin: 07/31/17 08:57 Dose: 81 mg Atorvastatin Calcium (Lipitor) 20 mg PO HS [facility] Last Admin: 07/30/17 20:12 Dose: 20 mg Bisacodyl (Dulcolax) 10 mg PO DAILYPRN PRN PRN Reason: Constipation Clopidogrel Bisulfate (Plavix) 75 mg PO DAILY [facility] Last Admin: 07/31/17 08:57 Dose: 75 mg Dextrose/Water (Dextrose 50%) 25 gm SLOW IVP PRN PRN PRN Reason: Hypoglycemia Digoxin (Lanoxin) 0.125 mg PO DAILY [facility] Last Admin: 07/31/17 08:57 Dose: 0.125 mg Glucagon (Glucagon) 1 mg IM PRN PRN PRN Reason: Hypoglycemia Guaifenesin/Dextromethorphan (Mucinex Dm) 1 tab PO Q12HR PRN PRN Reason: congestion Guaifenesin/Dextromethorphan (Mucinex Dm) 2 tab PO ONE [facility] Azithromycin 500 mg/ Sodium (Chloride) 250 mls @ 250 mls/hr IVPB Q24HR [facility] Last Admin: 07/30/17 22:05 Dose: 250 mls Dextrose/Water (D5w) 1,000 mls @ 0 mls/hr IV .Q0M PRN; As Directed PRN Reason: Hypoglycemia Meropenem 1 gm/ Sterile Water 20 mls @ 240 mls/hr SLOW IVP Q8HR [facility] Last Admin: 07/31/17 14:35 Dose: 20 mls Vancomycin HCl 1.25 gm/ Sodium (Chloride) 250 mls @ 166.667 mls/hr IVPB 0400, 1200,2000 [facility] Last Admin: 07/31/17 11:35 Dose: 250 mls Insulin Human Lispro (Humalog) 0 units SC .MILD SLIDING SCALE PRN PRN Reason: Mild Correctional Scale Last Admin: 07/31/17 12:35 Dose: 3 unit Levothyroxine Sodium (Synthroid) 200 mcg PO 0600 [facility] Last Admin: 07/31/17 05:21 Dose: 200 mcg Metformin HCl (Glucophage) 500 mg PO BID[facility] Last Admin: 07/31/17 08:57 Dose: 500 mg Miscellaneous Medication (Pharmacy To Dose) 1 each IVPB PRN PRN PRN Reason: Pharmacy to dose Multivitamins (Theragran) 1 tab PO DAILY [facility] Last Admin: 07/31/17 08:57 Dose: 1 tab Nitroglycerin (Nitrostat) 0.4 mg SL Q5MIN PRN PRN Reason: Chest Pain Ondansetron HCl (Zofran) 4 mg IVP Q6H PRN PRN Reason: Nausea/Vomiting Sodium Chloride (Flush - Normal Saline) 10 ml IVF Q12HR [facility] Last Admin: 07/31/17 08:58 Dose: 10 ml Sodium Chloride (Flush - Normal Saline) 10 ml IVF PRN PRN PRN Reason: Saline Flush
--- NOTE | 2017-07-31 17:05 | RAD ---
CHEST TWO VIEW 07/31/17 HISTORY: Evaluate for pulmonary infiltrate. COMPARISON: Chest radiograph 07/28/17. FINDINGS: There is an air fluid level on the left lower lobe. Layering left effusion is present. Air space opac ities have improved. Right lung is clear. IMPRESSION: 1. New left lower lobe air fluid level. This may represent bronchopleural fistula, fluid within the known bulla, or eventration of bowel through the left hemidiaphragm. CT would be beneficial. 2. Relatively decreased fibrosis and improved aeration of the left lower lobe and lingula. POS: [facility]
[2017-07-31] MEDS: Atorvastatin Calcium 20 MG TAB PO SCH (20:16)
[2017-07-31] MEDS: Azithromycin 500 MG in Sodium Chloride 0.9% 250 ML 250 ML IVPB SCH (22:20)
[2017-08-01] MEDS: Vancomycin HCl 1.25 GM in Sodium Chloride 0.9% 250 ML 250 ML IVPB SCH ×2 (03:29→11:11)
[2017-08-01 05:01] LABS: #Eosinphils 0.1 thou/uL (0.0-0.7); #Lymphocytes 0.9 thou/uL (1.20-3.40); #Monocytes 0.6 thou/uL (0.11-0.59); #Neutrophils 6.1 thou/uL (1.40-6.50); %Basophils 0.1 % (0.0-1.0); %Eosinophils 0.8 % (0.0-10.0); %Lymphocytes 11.3 % (21.0-51.0); %Monocytes 8.3 % (0.0-10.0); %Neutrophils 79.6 % (42.0-75.0); Mean Corpuscular Hemoglobin 28.2 pg (27.0-31.0); Mean Platelet Volume 7.8 fL (7.4-10.4); Platelet Count 197 thou/uL (130-400); Red Blood Cell (RBC) Count 3.91 mill/uL (4.70-6.10); White Blood Cell (WBC) Count 7.6 thou/uL (4.8-10.8)
[2017-08-01 05:22] LABS: Anion Gap 14 mmol/L (10-20); BUN (Urea Nitrogen) 13 mg/dL (8.4-25.7); Calc. Creatinine Clearance 121 mL/min (70-130); Calcium 8.9 mg/dL (7.8-10.44); Carbon Dioxide 22 mmol/L (23-31); Chloride 104 mmol/L (98-107); Estimated GFR-MDRD 87; Glucose 154 mg/dL (83-110); Potassium 3.7 mmol/L (3.5-5.1); Sodium 136 mmol/L (136-145)
[2017-08-01] MEDS: Levothyroxine Sodium 100 MCG TAB PO SCH (05:47)
[2017-08-01] MEDS: Meropenem 1 GM in Sterile Water 20 ML SLOW IVP SCH (05:47)
[2017-08-01] MEDS: Digoxin 0.125 MG TAB PO SCH (08:09)
[2017-08-01] MEDS: Multivit, Therapeutic 1 TAB PO SCH (08:09)
[2017-08-01] MEDS: metFORMIN 500 MG TAB PO SCH ×2 (08:09→17:54)
[2017-08-01] MEDS: Aspirin 81 mg Enteric Coated Tablet PO SCH (08:09)
[2017-08-01] MEDS: Clopidogrel Bisulfate 75 MG TAB PO SCH (08:09)
[2017-08-01] MEDS: HumaLOG 300 UNITS/3 ML VIAL SC PRN ×2 (11:14→17:54)
[2017-08-01] MEDS ORDERED: Colchicine 0.6 MG TAB PO SCH (11:15)
[2017-08-01 11:22] LABS: Vancomycin, Trough 18.6 ug/mL
--- NOTE | 2017-08-01 12:37 | PDOC.PN ---
- Subjective Encounter Start Date: 08/01/17 Encounter Start Time: 07:20 Pt seen for followup re; gout flare. Denies fevers or chills. Has R elbow pain , L ankle pain. - Objective Resuscitation Status: Resuscitation Status FULL:Full Resuscitation MAR Reviewed: Yes Vital Signs & Weight: Vital Signs (12 hours) Temp Pulse Resp BP BP Pulse Ox 08/01/17 11:44 97.9 F 85 16 131/76 99 08/01/17 08:41 111 H 113/65 08/01/17 08:09 89 08/01/17 08:00 99.1 F 111 H 18 93/52 L 92 L 08/01/17 03:33 98.9 F 103 H 18 136/82 95 Weight Weight 242 lb I&O: 07/31/17 08/01/17 08/02/17 06:59 06:59 06:59 Intake Total 2190 2640 Output Total 900 1200 Balance 1290 1440 Result Diagrams: 08/01/17 04:17 08/01/17 04:17 Additional Labs: Accuchecks 08/01/17 08/01/17 07/31/17 11:02 05:45 20:56 POC Glucose 186 H 159 H 179 H 07/31/17 17:07 POC Glucose 212 H EKG Reviewed by me: Yes (Tele: sissy montano) Phys Exam - Physical Examination Obese HEENT: moist MMs Neck: supple Respiratory: clear to auscultation bilateral Cardiovascular: irregular Gastrointestinal: soft R olecranon bursitis+, L ankle tenderness+ Neurological: moves all 4 limbs Psychiatric: normal affect Skin: no rash Dx/Plan (1) Gout flare Code(s): M10.9 - GOUT, UNSPECIFIED Status: Acute (2) Sepsis Code(s): A41.9 - SEPSIS, UNSPECIFIED ORGANISM Status: Acute (3) Paroxysmal atrial fibrillation Code(s): I48.0 - PAROXYSMAL ATRIAL FIBRILLATION Status: Chronic (4) AAA (abdominal aortic aneurysm) Code(s): I71.4 - ABDOMINAL AORTIC ANEURYSM, WITHOUT RUPTURE Status: Chronic (5) CAD (coronary artery disease) Code(s): I25.10 - ATHSCL HEART DISEASE OF [place] CORONARY ARTERY W/O ANG PCTRS Status: Chronic (6) Diabetes type 2, controlled Code(s): E11.9 - TYPE 2 DIABETES MELLITUS WITHOUT COMPLICATIONS Status: Chronic (7) Dyslipidemia Code(s): E78.5 - HYPERLIPIDEMIA, UNSPECIFIED Status: Chronic (8) Hypertension Code(s): I10 - ESSENTIAL (PRIMARY) HYPERTENSION Status: Chronic (9) Hypothyroidism Code(s): E03.9 - HYPOTHYROIDISM, UNSPECIFIED Status: Chronic (10) Obesity (BMI 30.0-34.9) Code(s): E66.9 - OBESITY, UNSPECIFIED Status: Chronic - Plan continue antibiotics, PT/OT, out of bed/ambulate * . Consult orthopedic re: olecranon bursitis. Pt has received five days of antibiotics, will discontinue antibiotics and observe. Likely viral infection on presentation. a. fib rate-controlled. Review of Systems - Review of Systems Respiratory: negative: Cough, Dry, Shortness of Breath, Hemoptysis, SOB with Excertion, Pleuritic Pain, Sputum, Wheezing Cardiovascular: negative: chest pain, palpitations, orthopnea, paroxysmal nocturnal dyspnea, edema, light headedness Musculoskeletal: Other (R elbow pain, L ankle pain) - Medications/Allergies Allergies/Adverse Reactions: Allergies Allergy/AdvReac Type Severity Reaction Status Date / Time amoxicillin AdvReac Mild Rash Verified 12/21/16 15:26 Medications: Current Medications Acetaminophen (Tylenol) 650 mg PO Q6H PRN PRN Reason: Headache/Fever or Pain Last Admin: 07/31/17 20:28 Dose: 650 mg Albuterol/Ipratropium (Duoneb) 3 ml NEB Q6H PRN PRN Reason: SOB &/or Wheezing Last Admin: 07/28/17 19:11 Dose: 3 ml Aspirin (Ecotrin) 81 mg PO DAILY [facility] Last Admin: 08/01/17 08:09 Dose: 81 mg Atorvastatin Calcium (Lipitor) 20 mg PO HS [facility] Last Admin: 07/31/17 20:16 Dose: 20 mg Bisacodyl (Dulcolax) 10 mg PO DAILYPRN PRN PRN Reason: Constipation Clopidogrel Bisulfate (Plavix) 75 mg PO DAILY [facility] Last Admin: 08/01/17 08:09 Dose: 75 mg Colchicine (Colcrys) 0.6 mg PO BID [facility] Colchicine (Colcrys) 0.6 mg PO NOW [facility] Stop: 08/01/17 13:15 Last Admin: 08/01/17 11:11 Dose: 0.6 mg Dextrose/Water (Dextrose 50%) 25 gm SLOW IVP PRN PRN PRN Reason: Hypoglycemia Digoxin (Lanoxin) 0.125 mg PO DAILY [facility] Last Admin: 08/01/17 08:09 Dose: 0.125 mg Glucagon (Glucagon) 1 mg IM PRN PRN PRN Reason: Hypoglycemia Guaifenesin/Dextromethorphan (Mucinex Dm) 1 tab PO Q12HR PRN PRN Reason: congestion Azithromycin 500 mg/ Sodium (Chloride) 250 mls @ 250 mls/hr IVPB Q24HR [facility] Last Admin: 07/31/17 22:20 Dose: 250 mls Dextrose/Water (D5w) 1,000 mls @ 0 mls/hr IV .Q0M PRN; As Directed PRN Reason: Hypoglycemia Meropenem 1 gm/ Sterile Water 20 mls @ 240 mls/hr SLOW IVP Q8HR [facility] Last Admin: 08/01/17 05:47 Dose: 20 mls Vancomycin HCl 1.25 gm/ Sodium (Chloride) 250 mls @ 166.667 mls/hr IVPB 0400, 1200,2000 [facility] Last Admin: 08/01/17 11:11 Dose: 250 mls Insulin Human Lispro (Humalog) 0 units SC .MILD SLIDING SCALE PRN PRN Reason: Mild Correctional Scale Last Admin: 08/01/17 11:14 Dose: 2 unit Levothyroxine Sodium (Synthroid) 200 mcg PO 0600 [facility] Last Admin: 08/01/17 05:47 Dose: 200 mcg Metformin HCl (Glucophage) 500 mg PO BID[facility] Last Admin: 08/01/17 08:09 Dose: 500 mg Miscellaneous Medication (Pharmacy To Dose) 1 each IVPB PRN PRN PRN Reason: Pharmacy to dose Multivitamins (Theragran) 1 tab PO DAILY [facility] Last Admin: 08/01/17 08:09 Dose: 1 tab Nitroglycerin (Nitrostat) 0.4 mg SL Q5MIN PRN PRN Reason: Chest Pain Ondansetron HCl (Zofran) 4 mg IVP Q6H PRN PRN Reason: Nausea/Vomiting Sodium Chloride (Flush - Normal Saline) 10 ml IVF Q12HR [facility] Last Admin: 08/01/17 08:09 Dose: 10 ml Sodium Chloride (Flush - Normal Saline) 10 ml IVF PRN PRN PRN Reason: Saline Flush
--- NOTE | 2017-08-01 13:58 | CON ---
DATE OF CONSULTATION: 08/01/2017 REQUESTING PHYSICIAN: Dr. Dewayne Nunez. CONSULTING PHYSICIAN: Dr. Kerwin Thornton. REASON FOR CONSULTATION: Right elbow gouty olecranon bursitis. BRIEF CLINICAL HISTORY: Clovis is a 71-year-old white male who was admitted to the Medicine Service 4 days ago for generalized weakness. He has been placed on telemetry floor and being evaluated from a cardiac standpoint. Our service was consulted for evaluation of a tender elbow on the right, which came up in the last 48 hours. He has had these before. He has had a long history of gout and in fac t he has even had his olecranon bursa self-rupture exuding what he describes as "toothpaste like" mat erial. Currently, his symptoms are mild and manageable. I believe Dr. Nunez wanted us to evaluate a nd make sure this was not a septic process. PHYSICAL EXAMINATION: Visual inspection of the right elbow demonstrates him to indeed have a fluctua nt small mass measures about 2 x 2 cm. I can actually feel the nidus down on the olecranon itself, i t is minimally erythematous blanches with pressure, mildly tender. The patient tolerates exam very w ell. He has full flexion and extension of the elbow for unrestricted motion. Again, no weeping or d rainage is identified. Has very benign appearance currently. IMPRESSION: Right elbow gouty tophus olecranon bursitis. PLAN: Continue current management. I believe he is being hydrated and he also takes gout medicines, which are unknown to me. I have no surgical plans or interventions for this particular problem. We will talk to Dr. Nunez regarding treatment plans.
[2017-08-01] MEDS: Atorvastatin Calcium 20 MG TAB PO SCH (19:55)
[2017-08-01] MEDS: Azithromycin 500 MG in Sodium Chloride 0.9% 250 ML 250 ML IVPB SCH (19:55)
[2017-08-01] MEDS: Colchicine 0.6 MG TAB PO SCH (19:55)
[2017-08-02] MEDS: Levothyroxine Sodium 100 MCG TAB PO SCH (06:05)
[2017-08-02] MEDS: Digoxin 0.125 MG TAB PO SCH (08:18)
[2017-08-02] MEDS: Clopidogrel Bisulfate 75 MG TAB PO SCH (08:18)
[2017-08-02] MEDS: Colchicine 0.6 MG TAB PO SCH (08:19)
[2017-08-02] MEDS: Multivit, Therapeutic 1 TAB PO SCH (08:19)
[2017-08-02] MEDS: Aspirin 81 mg Enteric Coated Tablet PO SCH (08:19)
[2017-08-02] MEDS: metFORMIN 500 MG TAB PO SCH (08:19)
[2017-08-02 11:22] VITALS: BP 130/75; TEMP 97.5
--- NOTE | 2017-08-02 22:06 | DIS ---
DATE OF ADMISSION: 07/27/2017 DATE OF DISCHARGE: 08/02/2017 PRIMARY CARE PHYSICIAN: Dr. Nga Graham. DISCHARGE DIAGNOSES: 1. Sepsis, likely viral or noninfectious causes. 2. Gout flare. 3. Right olecranon bursitis. CONDITION OF PATIENT ON THE DAY OF DISCHARGE: Stable. I assessed Mr. Hurst on the day of discharge. He denies any chest pain or shortness of breath. V ital signs are stable. S1 and S2 are heard, regular. Lungs are clear to auscultation bilaterally. Right olecranon bursitis appears to have decreased. The left ankle is nontender. HOSPITAL COURSE: Mr. Hurst is a pleasant 71-year-old gentleman who was admitted to [facility] on 07/27/2017 for probable sepsis. He was started on broad-spectrum intravenous antibiotics. He had a negative influenza screen at the time of admission. All cultures, including b lood and urine were negative. Antibiotics were stopped. He also had gout flare up in his left ankle. He also developed right olecranon bursitis. He was see n by Orthopedic Service, who recommended not aspirating the olecranon bursa. He received colchicine, with symptomatic improvement. On the day of discharge, he is awaiting steroid injections into both knees by Orthopedic Surgery Serv ice. He also developed atrial fibrillation with rapid ventricular response. He has a known history of atr ial fibrillation. He was seen by Cardiology Service. He is advised to follow up with his primary care provider in 3 days, with Orthopedic Surgery Service and with Cardiology Service as outpatient. DISCHARGE MEDICATIONS: Aspirin 81 mg daily, Plavix 75 mg daily, digoxin 125 mcg daily, Synthroid 200 mcg daily, metformin 500 mg 2 times a day, multivitamins 1 tablet daily, nitroglycerin p.r.n. and si mvastatin 40 mg every evening. When he is reassessed by his primary care physician, it is advised that he be evaluated to see if he needs colchicine. This was stopped on the day of discharge. Many thanks for allowing me to participate in your patient's care. Please feel free to contact me wi th any questions or concerns. Referral was also made for outpatient physical therapy. He was seen by the walking program at the [facility] and was ambulating short distances well. DISCHARGE DESTINATION: Home. TOTAL AMOUNT OF TIME SPENT COORDINATING THIS DISCHARGE: 24 minutes.
== END 2017-08-02 13:22 | disposition home or self-care (01) | DRG 872 ==
LOC: ERS 14:32 → 2NO 17:45
PROVIDERS: ADMIT Internal Medicine; ATTEND Internal Medicine
DX: A41.89 Other specified sepsis (principal); I48.0 Paroxysmal atrial fibrillation; D64.9 Anemia, unspecified; E87.1 Hypo-osmolality and hyponatremia; E11.9 Type 2 diabetes mellitus without complications; B97.89 Other viral agents as the cause of diseases classified elsewhere; E03.9 Hypothyroidism, unspecified; R91.1 Solitary pulmonary nodule; E78.5 Hyperlipidemia, unspecified; I10 Essential (primary) hypertension; I25.10 Atherosclerotic heart disease of native coronary artery without angina pectoris; G47.33 Obstructive sleep apnea (adult) (pediatric); Z95.1 Presence of aortocoronary bypass graft; Z87.891 Personal history of nicotine dependence; Z79.82 Long term (current) use of aspirin; M10.9 Gout, unspecified; M70.21 Olecranon bursitis, right elbow; Z79.01 Long term (current) use of anticoagulants; Z79.84 Long term (current) use of oral hypoglycemic drugs; E66.9 Obesity, unspecified; Z68.31 Body mass index [BMI] 31.0-31.9, adult
CPT/HCPCS: 36415; 36416; 71045; 71046; 80048; 80053; 80202; 81003; 81015; 82553; 83605; 83690; 83880; 84443; 84484; 85025; 87040; 87086; 93005; 94640; 96374; 96375; A4216; J0456; J0696; J1940; J1956; J2185; J3370; J7050; J7620

== ENCOUNTER 2017-08-15 07:40 | Outpatient (CLI) | payer MEDICARE, BC ==
--- NOTE | 2017-08-15 09:27 | CT ---
CHEST CT: Date: 08-15-17 Comparison: 09-10-16, 02-19-17 History: Lung cancer. Technique: Serial axial CT imaging obtained at 5 mm intervals from the thoracic inlet to the upper ab domen with intravenous contrast. Coronal reformatted imaging obtained. FINDINGS: No axillary adenopathy. Midline sternotomy wires and mediastinal clips are present. There is extensiv e coronary artery arterial calcification. No significant hilar or mediastinal lymphadenopathy. Imaged upper abdomen demonstrates decreased attenuation of the hepatic parenchyma suggesting steatosi s. There are scattered atherosclerotic calcification of the aortic arch and the great vessels. There are post-operative clips adjacent to the esophagus in the left hilar region inferiorly, associa mary ann with left lower lobectomy. Location of the clips and posterior operative changes at the origin of the bronchus behind the left lower lobe are stable when compared to chest CT performed 02-19-17. On to day's examination there is continued area of gas filled post-operative cavity in the region of the le ft lower lobe. This gas filled post-operative cavity in the location of the now post operatively abse nt left lower lobe measures 10.9 x 8.9 cm in greatest AP and transverse dimension, decreased since e 02-19-17 study at which time this measures 12.3 x 10.1 cm. There is a small amount of new fluid withi n the post-operative cavity. This fluid is new when compared to a CT of the abdomen and pelvis perfor [facility] 06-24-17. No suspicious pulmonary mass lesion or nodule is noted within the left upper lobe. There is an area o f mild increased linear density within the inferior aspect of the left upper lobe suggesting scar and /or volume loss, less conspicuous than on 02-19-17 exam. There is a prominent granuloma within the right lower lobe, stable. No discrete/dominant pulmonary nodule or mass lesion is noted within the right lower lobe. There is a nodule within the medial aspect of the right lower lobe on Image 32 measuring 7-8 mm, stable when co mpared to the 09-10-16 exam. Tiny nodule noted in right upper lobe on Image 16 anteriorly, stable. The re is a tiny nodule on Image 23 within the anterior aspect of the right upper lobe, measuring 4 mm, u nchanged when compared to the 02-19-17 exam. Review of the osseous structures demonstrates multiple areas of post-operative change and causing pos terior left side ribs. There is multilevel degenerative change seen within the midthoracic spine. No worrisome lytic or blastic bones lesions are seen. IMPRESSION: Post-operative changes within the left hemithorax consistent with left lower lobectomy. Pulmonary nod ules are noted, for which follow up imaging is advised. No new pulmonary nodules. POS: [facility]
[2017-08-15] MEDS ORDERED: Iopamidol 370 76% 100 ML VIAL ONE (12:58)
== END 2017-08-15 07:41 | disposition home or self-care (01) ==
LOC: CT 07:40
PROVIDERS: ATTEND Internal Medicine Medical Oncology
DX: C34.32 Malignant neoplasm of lower lobe, left bronchus or lung (principal); R91.8 Other nonspecific abnormal finding of lung field
CPT/HCPCS: 71260

== ENCOUNTER 2017-08-28 10:17 | Outpatient (CLI) | payer MEDICARE, BC | END 2017-08-28 10:18 | disposition home or self-care (01) | LOC: BICMAMMO 10:17 | PROVIDERS: ATTEND Family Medicine | DX: Z13.820 Encounter for screening for osteoporosis (principal); Z79.52 Long term (current) use of systemic steroids | CPT/HCPCS: 77080 ==

== ENCOUNTER 2017-10-09 12:51 | Outpatient (CLI) | payer MEDICARE, BC ==
[2017-10-09 13:12] LABS: #Basophils 0.1 thou/uL (0.0-0.2); #Eosinphils 0.1 thou/uL (0.0-0.7); #Lymphocytes 1.8 thou/uL (1.20-3.40); #Neutrophils 8.8 thou/uL (1.40-6.50); %Basophils 0.5 % (0.0-1.0); %Eosinophils 0.6 % (0.0-10.0); %Lymphocytes 15.3 % (21.0-51.0); %Monocytes 8.4 % (0.0-10.0); %Neutrophils 75.2 % (42.0-75.0); Hemoglobin 12.8 g/dL (14.0-18.0); Mean Corpuscular HGB CONC 32.3 g/dL (32.0-36.0); Mean Corpuscular Hemoglobin 26.1 pg (27.0-31.0); Mean Corpuscular Volume 80.7 fl (80.0-94.0); Platelet Count 279 thou/uL (130-400); RBC Distribution Width 15.7 % (11.5-14.5); White Blood Cell (WBC) Count 11.7 thou/uL (4.8-10.8)
[2017-10-09 13:20] LABS: ALT (SGPT) 17 U/L (8-55); AST (SGOT) 18 U/L (5-34); Albumin 4.1 g/dL (3.4-4.8); Alkaline Phosphatase 81 U/L (40-150); Anion Gap 17 mmol/L (10-20); BUN (Urea Nitrogen) 16 mg/dL (8.4-25.7); Bilirubin, Total 0.9 mg/dL (0.2-1.2); Calc. Creatinine Clearance 0 mL/min (70-130); Calcium 10.7 mg/dL (7.8-10.44); Carbon Dioxide 27 mmol/L (23-31); Chloride 97 mmol/L (98-107); Estimated GFR-MDRD 61; Globulin 4.3 g/dL (2.4-3.5); Glucose 221 mg/dL (83-110); Potassium 4.1 mmol/L (3.5-5.1); Protein, Total 8.4 g/dL (5.8-8.1); Sodium 137 mmol/L (136-145)
[2017-10-09 13:46] LABS: Bilirubin Small (Negative); Blood, Urine Negative (Negative); Clarity Slightly Cloudy (Clear); Glucose, Urine (Dipstick) Negative (Negative); Leukocyte Negative (Negative); Nitrite Negative (Negative); Protein, Urine (Dipstick) 100 mg/dL (Neg-Trace); Specific Gravity, Urine 1.025 (1.005-1.030); Urobilinogen 0.2 mg/dL (0.2-1.0)
[2017-10-09 14:12] LABS: Bacteria/HPF Rare-Few HPF (None Seen); Hyaline Casts/LPF 0-3 HYALINE CAST LPF (0-3 Hyaline); RBC/HPF 0-3 HPF (0-3); Squamous Epithelial 0-3 HPF (0-3); WBC/HPF 0-3 HPF (0-3)
--- NOTE | 2017-10-09 15:32 | RAD ---
PA AND LATERAL OF THE CHEST: 10/09/17 INDICATION: Chest congestion. FINDINGS: the air fluid level seen within the left lower lobectomy cavity is similar to the CT examination in and a chest radiograph dated 07/31/17. Scarring within the residual left upper lobe is similar. Right lung remains clear. Sternotomy changes are similar. Osseous structures are unchanged. IMPRESSION: Stable exam. POS: [facility]
== END 2017-10-09 12:52 | disposition home or self-care (01) ==
LOC: SCSRAD 12:51
PROVIDERS: ATTEND Family Medicine
DX: R09.89 Other specified symptoms and signs involving the circulatory and respiratory systems (principal); R53.1 Weakness; E11.65 Type 2 diabetes mellitus with hyperglycemia
CPT/HCPCS: 36415; 71046; 80053; 81001; 85025; 87040

== ENCOUNTER 2018-01-08 08:15 | Outpatient (CLI) | payer MEDICARE, BC ==
--- NOTE | 2018-01-08 10:20 | RAD ---
FRONTAL AND LATERAL IMAGING OF THE CHEST: Date: 01-08-18 Comparison: 10-18-16 History: Dyspnea. Chest congestion. FINDINGS: Partially imaged stent graft noted in upper abdomen on the lateral view. Midline sternotomy wires are present. A probable left atrial occlusion device noted on the lateral ex am. There is an air fluid level on the lateral examination posteriorly which correlates with a left sided air fluid level, as seen on the 08-15-[address] The fluid within this post-operative cavity has inc reased since the prior CT examination. Numerous old left sided rib fractures are noted. There is no pneumothorax seen on either side. There is a granuloma in the left lung base. IMPRESSION: Numerous chronic findings are described above. Increasing fluid is noted within a loculated fluid and gas collection within the pleural space posteriorly on the left, consistent with post-operative castaneda ge. Follow up advised. POS: [facility]
== END 2018-01-08 08:16 | disposition home or self-care (01) ==
LOC: RAD 08:15
PROVIDERS: ATTEND Internal Medicine Pulmonary Disease
DX: R06.00 Dyspnea, unspecified (principal)
CPT/HCPCS: 71046

== ENCOUNTER 2018-04-02 07:53 | Outpatient (CLI) | payer MEDICARE, BC ==
[2018-04-02] MEDS ORDERED: Iopamidol 370 76% 100 ML VIAL ONE (10:11)
--- NOTE | 2018-04-02 10:28 | CT ---
CT CHEST WITH CONTRAST: FINDINGS: Interval size decrease of the left hydropneumothorax from prior left lower lobectomy. Small volume a ir and gas. Mild emphysematous changes. There is a calcified granuloma in the right lung base. The 3 mm nodule in the posterior segment, left upper lobe, on series 3, image 18, is similar. No new suspicious pulmonary nodule. Small mediastinal lymph nodes. There are extensive [place] coronary artery calcifications. The hypodensity is similar. The adrenal glands are unremarkable. IMPRESSION: 1. No evidence of disease recurrence or metastasis. 2. Size decrease in the left-sided hydropneumothorax, post surgical in nature. 3. No acute inflammatory process within the chest. POS: [facility]
== END 2018-04-02 07:54 | disposition home or self-care (01) ==
LOC: CT 07:53
PROVIDERS: ATTEND Internal Medicine Medical Oncology
DX: C34.32 Malignant neoplasm of lower lobe, left bronchus or lung (principal); J94.8 Other specified pleural conditions; R91.1 Solitary pulmonary nodule
CPT/HCPCS: 71260

== ENCOUNTER 2018-04-17 07:46 | Outpatient (CLI) | payer MEDICARE, BC ==
--- NOTE | 2018-04-17 10:24 | CT ---
CT ANGIOGRAM OF THE ABDOMEN WITH AND WITHOUT CONTRAST CT ANGIOGRAM OF THE PELVIS WITH AND WITHOUT CONTRAST: DATE: 04/17/18. HISTORY: A 72-year-old male with I71.4, abdominal aortic aneurysm without rupture. Malignant neoplasm of lower lobe, left bronchus or lung. COMPARISON: 06/14/2017. TECHNIQUE: IV injection of 100 mL of Isovue 270. Precontrast scan and arterial phase scan from lung bases through ischial tuberosities. Coronal and s agittal 3D MIP reconstructions of the postcontrast arterial phase scan. FINDINGS: Again noted is the fusiform infrarenal abdominal aortic aneurysm, within which there is an endograft. The diameter of the aneurysm measured at the L4 level, was previously approximately 6.5 x 5.1 cm. Now, measured at the same L4 level, the aneurysm measures 5.8 x 5.1 cm. The previously demonstrated endoleak (probably a type II from the SUJEY), demonstrated by contrast opacification pocket within the excluded, thrombosed portion of the aneurysm, has been filled with hyperdense material (embolization glue). Currently, there is no evidence of an endoleak. The celiac artery, superior mesenteric arter y, and bilateral renal arteries are patent. There is a patent tiny right lower pole moiety accessory right renal artery which is also patent. Th e iliac limbs of the endograft extend into the bilateral common iliac arteries. The bilateral common , internal, and external iliac arteries are patent. No retroperitoneal fluid or hematoma. The previ ously demonstrated loculated left basilar pneumothorax has slightly decreased in volume, and has beco me filled with fluid. The right lung base is clear. Numerous tiny calcifications in the bilateral r enal sinus represent atherosclerotic calcification of renal artery branches. Left renal upper pole c yst is again noted. Mildly fatty liver. No other hepatic abnormality identified, within the limitat ions of an arterial phase and noncontrast phase scan. Tiny right renal cortical cysts. No hydroneph rosis. No small bowel dilation. Unremarkable urinary bladder. No colonic diverticulitis. Multiple sigmoid colonic diverticula. Normal pancreas and adrenals. IMPRESSION: 1. Fusiform infrarenal abdominal aortic aneurysm treated with endograft, has decreased in caliber. 2. 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 Currently, no evidence of residual o r new endoleak. 3. Other findings as mentioned above. POS: [facility]
[2018-04-17] MEDS ORDERED: Iopamidol 370 76% 100 ML VIAL ONE (12:27)
== END 2018-04-17 07:47 | disposition home or self-care (01) ==
LOC: CT 07:46
PROVIDERS: ATTEND Thoracic Surgery (Cardiothoracic Vascular Surgery)
DX: I71.4 Abdominal aortic aneurysm, without rupture (principal); I70.1 Atherosclerosis of renal artery; N28.1 Cyst of kidney, acquired; K76.0 Fatty (change of) liver, not elsewhere classified; K57.30 Diverticulosis of large intestine without perforation or abscess without bleeding
CPT/HCPCS: 74174; 82565

== ENCOUNTER 2018-09-11 00:17 | Outpatient (CLI) | payer MEDICARE, BC ==
[2018-09-11 10:00] LABS: #Eosinphils 0.1 thou/uL (0.0-0.7); #Lymphocytes 2.4 thou/uL (1.20-3.40); #Monocytes 0.8 thou/uL (0.11-0.59); %Basophils 0.6 % (0.0-1.0); %Eosinophils 1.3 % (0.0-10.0); %Lymphocytes 29.2 % (21.0-51.0); %Monocytes 9.4 % (0.0-10.0); %Neutrophils 59.5 % (42.0-75.0); Hemoglobin 13.6 g/dL (14.0-18.0); INR-International Normal Ratio 1.1; Mean Corpuscular HGB CONC 31.2 g/dL (32.0-36.0); Mean Corpuscular Hemoglobin 26.1 pg (27.0-31.0); Mean Corpuscular Volume 83.7 fL (78.0-98.0); Mean Platelet Volume 8.1 fL (7.4-10.4); Platelet Count 235 thou/uL (130-400); Prothrombin Time 13.9 SEC (12.0-14.7); RBC Distribution Width 15.3 % (11.5-14.5); Red Blood Cell (RBC) Count 5.19 mill/uL (4.70-6.10); White Blood Cell (WBC) Count 8.4 thou/uL (4.8-10.8)
[2018-09-11 10:25] LABS: Anion Gap 12 mmol/L (10-20); BUN (Urea Nitrogen) 17 mg/dL (8.4-25.7); Calc. Creatinine Clearance 0 mL/min (70-130); Carbon Dioxide 27 mmol/L (23-31); Chloride 102 mmol/L (98-107); Estimated GFR-MDRD 71; Glucose 150 mg/dL (83-110); Potassium 4.1 mmol/L (3.5-5.1); Sodium 137 mmol/L (136-145)
== END 2018-09-11 00:18 | disposition home or self-care (01) ==
LOC: LABBT 00:17
PROVIDERS: ATTEND Orthopaedic Surgery
DX: Z01.818 Encounter for other preprocedural examination (principal); M17.11 Unilateral primary osteoarthritis, right knee
CPT/HCPCS: 80048; 85025; 85610; 87081; 93005; 93010

== ENCOUNTER 2018-09-17 09:44 | Outpatient (CLI) | payer MEDICARE, BC | END 2018-09-17 09:45 | disposition home or self-care (01) | LOC: LABBT 09:44 | PROVIDERS: ATTEND Orthopaedic Surgery | DX: Z01.812 Encounter for preprocedural laboratory examination (principal); M17.11 Unilateral primary osteoarthritis, right knee | CPT/HCPCS: 86850; 86900; 86901 ==

== ENCOUNTER 2018-09-23 06:17 | Inpatient (IN) | payer MEDICARE, BC ==
[2018-09-11 09:08] VITALS: BMI 29.0
[2018-09-23] MEDS ORDERED: Levofloxacin 500 mg/D5W 100 ml Premix Bag ONE (06:32)
[2018-09-23] MEDS ORDERED: Tranexamic Acid 1,000 MG/10 ML VIAL ONE (06:33)
[2018-09-23] MEDS ORDERED: Sodium Chloride 0.9% 100 ML ONE (06:33)
[2018-09-23] MEDS ORDERED: Midazolam HCl 2 mg/2 ml Vial ONE (06:36)
[2018-09-23] MEDS ORDERED: Fentanyl 100 MCG/2 ML VIAL ONE ×3 (06:36→09:03)
[2018-09-23] MEDS ORDERED: Vancomycin HCl 1.5 GM in Sodium Chloride 0.9% 250 ML 300 ML IVPB SCH ×2 (07:00→19:00)
[2018-09-23] MEDS ORDERED: traMADol HCl 50 MG TAB PO PRN (07:55)
[2018-09-23] MEDS ORDERED: Zolpidem Tartrate 5 MG TAB PO PRN ×2 (07:55→10:12)
[2018-09-23] MEDS ORDERED: HYDROcodone/Acetaminophen 10/325 mg Tablet PO PRN ×3 (07:55→10:12)
[2018-09-23] MEDS ORDERED: Promethazine HCl 25 MG/ML VIAL IM PRN ×2 (07:55→10:12)
[2018-09-23] MEDS ORDERED: Ondansetron PF 4 MG/2 ML Vial IVP PRN ×2 (07:55→10:12)
[2018-09-23] MEDS ORDERED: Ropivacaine HCl/PF 250 ML in Premix Bag 1 BAG NERVE BLCK SCH (07:55)
[2018-09-23] MEDS ORDERED: Fentanyl 100 MCG/2 ML VIAL IV PRN (07:56)
[2018-09-23] MEDS ORDERED: Morphine 2 MG/ML SYRINGE SLOW IVP PRN (10:12)
[2018-09-23] MEDS ORDERED: diphenhydrAMINE 25 MG CAP PO PRN (10:12)
[2018-09-23] MEDS ORDERED: Morphine 4 MG/ML VIAL SLOW IVP PRN (10:12)
[2018-09-23] MEDS ORDERED: Acetaminophen 325 MG TAB PO PRN (10:12)
[2018-09-23] MEDS ORDERED: Nitroglycerin 0.4 MG TAB (25 Tab Bottle) SL PRN (10:18)
--- NOTE | 2018-09-23 11:30 | RAD ---
RIGHT KNEE TWO VIEWS: History: Post op. FINDINGS: Patient is status post total knee replacement. Prosthesis appears to be in satisfactory position. No signs of fracture. IMPRESSION: Placement of a total knee prosthesis. POS: [facility]
[2018-09-23] MEDS ORDERED: Ropivacaine 0.2% HCl/PF (40 MG/20 ML VIAL) ONE (11:49)
[2018-09-23] MEDS ORDERED: Ropivacaine 0.5% HCl/PF (150 MG/30 ML VIAL) ONE (11:49)
[2018-09-23] MEDS ORDERED: Dexamethasone 20 MG/5 ML VIAL ONE (11:52)
[2018-09-23] MEDS ORDERED: PROPOFOL 200 MG/20 ML VIAL ONE (11:52)
[2018-09-23] MEDS ORDERED: Lidocaine 1% PF 5 ML VIAL ONE (11:52)
[2018-09-23] MEDS ORDERED: PHENYLEPHRINE-NS 100 MCG/ML 10 ML SYRINGE ONE (11:52)
[2018-09-23] MEDS ORDERED: Ondansetron PF 4 MG/2 ML Vial ONE (11:52)
[2018-09-23] MEDS: Sodium Chloride 0.9% 1,000 ML IV SCH ×2 (11:53→21:11)
[2018-09-23] MEDS ORDERED: Ketorolac Tromethamine 30 MG/ML VIAL IVP SCH (12:00)
[2018-09-23] MEDS: Ketorolac Tromethamine 30 MG/ML VIAL IVP SCH ×2 (14:21→21:05)
[2018-09-23] MEDS: HYDROcodone/Acetaminophen 10/325 mg Tablet PO PRN ×2 (14:24→18:39)
[2018-09-23] MEDS: metFORMIN 500 MG TAB PO SCH (17:37)
[2018-09-23] MEDS: Mometasone Furoate 120 PUFF 220 MCG INH SCH (19:35)
[2018-09-23] MEDS: Aspirin 81 mg Enteric Coated Tablet PO SCH (21:01)
[2018-09-23] MEDS: Senokot S 8.6-50 MG TAB PO SCH (21:01)
[2018-09-23] MEDS: Atorvastatin Calcium 20 MG TAB PO SCH (21:01)
[2018-09-23] MEDS: Ferrous Gluconate 324 MG TAB PO SCH (21:01)
[2018-09-23] MEDS ORDERED: HumaLOG 300 UNITS/3 ML VIAL SC PRN (23:54)
[2018-09-23] MEDS ORDERED: Dextrose 50% Abboject 50 ML SYRINGE IVP PRN (23:54)
[2018-09-23] MEDS ORDERED: Dextrose 5% in Water 1,000 ML IV PRN (23:54)
--- NOTE | 2018-09-24 01:15 | HP ---
Consultation is from Dr. Araujo for medical management. HISTORY OF PRESENT ILLNESS: This patient is a 72-year-old male, who is status post total right knee replacement for degenerative disease, failing outpatient management. The patient is doing well postoperatively today, still has fair amount of numbness in his leg and is not experiencing much in the way of discomfort. Overall, the patient reports he has been through a number of issues that his health is generally good and he has no other complaints at the moment. PAST MEDICAL HISTORY: Hyperlipidemia, coronary artery disease, hypothyroidism, atrial fibrillation, obstructive sleep apnea, AAA status post repair, diabetes mellitus type 2, GERD, and some gastritis. PAST SURGICAL HISTORY: The patient had a left lower lobe lung cancer surgically resected with lobectomy. He had coronary artery bypass graft. He had a transvenous aortic aneurysm repair with subsequent leakage and open procedure to repair it, and a transvenous procedure to "glue" the area of leakage which was apparently successful. FAMILY HISTORY: Father of an RI. SOCIAL HISTORY: The patient was a former smoker, but has quit. He is occasional alcohol. No drugs. He is . He is full code. His would be his surrogate decision maker. REVIEW OF SYSTEMS: All systems reviewed and all pertinent positives and negatives in the history of present illness. Essentially, the patient's review of systems through 14 systems was negative. CURRENT HOME MEDICATIONS: 1. Levothyroxine 150 mcg q.a.m. 2. Nitroglycerin p.r.n. 3. Synthroid 200 mcg q.a.m. 4. Flovent 50 mcg inhaled q.a.m. 5. Digoxin 0.125 daily. 6. Metformin 500 b.i.d. 7. Simvastatin 40 q.p.m. 8. Aspirin 81 mg daily. 9. Multivitamin 1 p.o. daily. PHYSICAL EXAMINATION: GENERAL APPEARANCE: Age-appropriate male, in no distress. Awake, alert, oriented, pleasant, and cooperative. HEENT: PERRL. No acute lesions. NECK: Supple and symmetric. No lymphadenopathy, JVD, or carotid bruits. HEART: Regular rate and rhythm without murmurs, gallops, or rubs. LUNGS: Clear. Slightly diminished at the left base. No wheezes or rales. ABDOMEN: Soft, nontender, and nondistended. Positive bowel sounds. No masses. No organomegaly. EXTREMITIES: Warm and dry with no cyanosis, clubbing, or edema. The right knee has appropriate postoperative dressing, has some decreased sensation to light touch. IMPRESSION AND PLAN: 1. The patient is postop right knee arthroplasty for degenerative disease, failing conservative outpatient management. He is doing well. Still has some anesthesia in that leg. Defer to surgery. 2. Diabetes mellitus. We will ensure Accu-Cheks and diabetic diet. Continue his home regimen. May add sliding scale if that becomes indicated. 3. Hypothyroidism. Continue with the patient's Synthroid. 4. History of atrial fibrillation. Continue with the digoxin. 5. Hyperlipidemia. Continue home dose of simvastatin. Job ID: [id number]
[2018-09-24 05:32] LABS: Hemoglobin 11.2 g/dL (14.0-18.0); Mean Corpuscular HGB CONC 31.7 g/dL (32.0-36.0); Mean Corpuscular Hemoglobin 25.9 pg (27.0-31.0); Mean Corpuscular Volume 81.6 fL (78.0-98.0); Platelet Count 197 thou/uL (130-400); Red Blood Cell (RBC) Count 4.33 mill/uL (4.70-6.10); White Blood Cell (WBC) Count 11.1 thou/uL (4.8-10.8)
[2018-09-24] MEDS: Ketorolac Tromethamine 30 MG/ML VIAL IVP SCH ×3 (05:42→22:00)
[2018-09-24] MEDS: Levothyroxine Sodium 100 MCG TAB PO SCH (05:42)
[2018-09-24] MEDS: HYDROcodone/Acetaminophen 10/325 mg Tablet PO PRN ×3 (05:51→23:38)
[2018-09-24] MEDS: traMADol HCl 50 MG TAB PO PRN (05:58)
[2018-09-24] MEDS: Sodium Chloride 0.9% 1,000 ML IV SCH ×2 (06:09→16:33)
--- NOTE | 2018-09-24 08:08 | OP ---
DATE OF PROCEDURE: 09/23/2018 PREOPERATIVE DIAGNOSIS: Degenerative joint disease, right knee. POSTOPERATIVE DIAGNOSIS: Degenerative joint disease, right knee. EQUIPMENT CLEANER: Zeferino Israel PA-C BLOOD LOSS: Minimal. SPECIMEN: None. DRAINS: None. COMPLICATION: None. TOURNIQUET TIME: 15. IMPLANTS USED: [place] triathlon 5 femur, 6 tibia, 9 mm CS X3 polyethylene, and a 35 patella. PROCEDURE IN DETAIL: After informed consent was obtained in the preoperative holding area, the patient was taken to the operative suite where general anesthesia was induced. Once adequate level of general anesthesia was obtained, the patient was positioned and a well-padded tourniquet was placed around the right proximal thigh. The right lower extremity was then prepped and draped in the usual sterile fashion. Prior to exsanguination, a time-out was called and all members of the surgical team agreed upon site, surgeon, and patient. The extremity was then exsanguinated and the tourniquet was raised. A midline longitudinal incision was then made directly over the patella extending 2 fingerbreadths above the superior pole of the patella and 2 fingerbreadths inferior to the inferior patellar pole of the patella. Deeper subcutaneous layers were dissected sharply and local bleeding was controlled with Bovie electrocautery. A quad tendon longitudinal split was then made sharply and a median parapatellar arthrotomy was carried out both sharp and with Bovie electrocautery, carried down to 1 fingerbreadth medial to the tibial tubercle. The knee was then placed into flexion and the patella was everted nicely, and a copious fat pad ectomy was performed allowing for greater exposure of the tibia. The computer-assisted distal femoral fiducial was then placed and pinned firmly, and the distal femoral cutting guide was pinned firmly into place. The oscillating saw was then used to remove the appropriate amount of bone. The 4-in-1 cutting block was then placed on the distal femur and the oscillating saw was used to remove the appropriate amount of bone off the anterior, posterior, and chamfer cuts. After completion of bone cuts, the anterior cruciate ligament was resected sharply and the posterior cruciate ligament retractor was placed and the tibia was subluxed for better exposure. Partial meniscectomies were carried out, and the tibial computer-assisted fiducial was pinned, and the cutting guide was placed. Oscillating saw was then used to remove the bone, with Hohmann retractors used to take care and protect the collateral ligaments. After the tibial resection was performed, a laminar dairy manager was placed in between the freshened bone cuts. The knee placed at 90 degrees and further bilateral meniscectomies were carried out, and the curved osteotome and curettage were used to remove any excess bone spurs in the posterior compartment. The trial femoral component, tibial baseplate were placed with the appropriate polyethylene trial insert with an appropriate polyethylene spacer and patellar button. The knee was taken through full range of motion with flexion and extension from 0 to 90 degrees and patellar broach squarely in the trochlea without any squinting or subluxation noted. The knee was also stable to varus and valgus stressing at 0, 15, 45, and 90 degrees of flexion. The drawer was negative. All trial components were then removed and the keel punch was used to provide the appropriate defect in the tibia with a mallet. The freshened bone cuts were copiously irrigated with pulsatile lavage of about 1.5 L to remove all excess debris. The freshened bone cuts were then dried with suction and lap sponge. The knee was placed in flexion and retractors were placed to provide access to all bone cuts. Tobramycin-impregnated methyl methacrylate cement was then placed on the freshened bone cuts and implants which were malleted firmly into place. Curettage and [place] elevators were used to remove any excess bone cement. The knee was placed into full extension and the patellar button was placed under compression, and the cement was allowed to cure. Once completed, the components were again taken through full range of motion and copious irrigation of the knee was carried out with another liter of normal saline. All components were inspected fully with full range of motion and varus and valgus stressing. There was no laxity noted and full extension was observed clinically. Primary closure was accomplished with #2 interrupted Vicryl stitch of the arthrotomy defect. This was oversewn with a #2 running Quill barbed stitch. The gravitational platelet system was then injected into the arthrotomy prior to closure. The subcutaneous layer was then closed with a running 0 barbed Monocryl stitch and skin closure accomplished with a running subcuticular 3-0 Monocryl barbed Quill stitch and augmented with cement on the skin. Tourniquet was lowered. Good spontaneous return of distal pulses was noted clinically and a sterile dressing was applied to the incision. The procedure was terminated without any complications. The patient was awakened in the operative suite and the patient was taken to the recovery room in stable condition. Job ID: [id number]
[2018-09-24] MEDS ORDERED: Calcium Carbonate 500 MG ChewTAB PO PRN (08:13)
[2018-09-24] MEDS: Ferrous Gluconate 324 MG TAB PO SCH ×2 (09:00→20:05)
[2018-09-24] MEDS ORDERED: Non-Formulary Item 1 EACH (Fluticasone Propionate [Flovent Diskus] 50 MCG) IH SCH (09:00)
[2018-09-24] MEDS ORDERED: LEVOTHYROXINE SODIUM 150 MCG PO SCH (09:00)
[2018-09-24] MEDS ORDERED: Digoxin 0.125 MG TAB PO SCH (09:00)
[2018-09-24] MEDS: Multivitamin W/ Minerals 1 TAB PO SCH (09:00)
[2018-09-24] MEDS: metFORMIN 500 MG TAB PO SCH (09:00)
[2018-09-24] MEDS: Aspirin 81 mg Enteric Coated Tablet PO SCH ×2 (09:00→20:05)
[2018-09-24] MEDS ORDERED: Multivit, Therapeutic 1 TAB PO SCH (09:00)
[2018-09-24] MEDS: Senokot S 8.6-50 MG TAB PO SCH ×2 (09:03→20:05)
--- NOTE | 2018-09-24 09:39 | PRG ---
DATE OF SERVICE: 09/24/2018 SUBJECTIVE: Clovis is a 72-year-old white male, who is postop day 1 from a right total knee arthroplasty. He is doing well. He is comfortable this morning and sitting up talking. He ambulated approximately 40 feet yesterday evening. OBJECTIVE: VITAL SIGNS: Temperature 98.3, pulse 89, respiratory rate 16 and nonlabored, O2 saturations 95% on room air, and blood pressure is 139/86. GENERAL: He is alert and oriented to person, place, time, and situation, grossly nonfocal. EXTREMITIES: Incision is clean without strikethrough. He is neurovascularly intact in the involved extremity. IMPRESSION: A 72-year-old male, postop day 1, right total knee arthroplasty, doing well. PLAN: Continue current care. Probable discharge tomorrow. Job ID: [id number]
[2018-09-24] MEDS ORDERED: Dextrose 5% in Water 1,000 ML IV PRN (15:51)
[2018-09-24] MEDS ORDERED: HumaLOG 300 UNITS/3 ML VIAL SC PRN (15:51)
[2018-09-24] MEDS ORDERED: Dextrose 50% Abboject 50 ML SYRINGE SLOW IVP PRN (15:51)
--- NOTE | 2018-09-24 16:13 | PDOC.PN ---
- Subjective Encounter Start Date: 09/24/18 Encounter Start Time: 16:11 Subjective: feels well. walked multiple times -: c/o heartburn - Objective MAR Reviewed: Yes Vital Signs & Weight: Vital Signs (12 hours) Temp Pulse Resp BP Pulse Ox 09/24/18 15:20 97.7 F 102 H 20 125/75 98 09/24/18 12:56 97.9 F 90 20 153/80 H 98 09/24/18 09:02 85 09/24/18 07:40 97 09/24/18 07:35 97.9 F 85 20 129/80 97 Weight Admit Weight 220 lb Weight 220 lb I&O: 09/23/18 09/24/18 09/25/18 06:59 06:59 06:59 Intake Total 1400 720 Output Total 400 Balance 1000 720 Result Diagrams: 09/24/18 04:38 Additional Labs: Accuchecks 09/24/18 09/24/18 09/23/18 12:46 05:19 23:20 POC Glucose 127 H 195 H 223 H Laboratory Tests 09/11/18 09/24/18 08:45 04:38 Hgb 13.6 L 11.2 L Phys Exam - Physical Examination Constitutional: NAD HEENT: PERRLA, moist MMs, sclera anicteric, oral pharynx no lesions Neck: no nodes, no JVD, supple, full ROM Respiratory: no wheezing, no rales, no rhonchi, clear to auscultation bilateral Cardiovascular: RRR, no significant murmur, no rub Gastrointestinal: soft, non-tender, no distention, positive bowel sounds Musculoskeletal: no edema, pulses present Neurological: non-focal, normal sensation, moves all 4 limbs Dx/Plan (1) CAD (coronary artery disease) Code(s): I25.10 - ATHSCL HEART DISEASE OF [place] CORONARY ARTERY W/O ANG PCTRS Status: Chronic (2) S/P total knee replacement Code(s): Z96.659 - PRESENCE OF UNSPECIFIED ARTIFICIAL KNEE JOINT Status: Acute Qualifiers: Laterality: right Qualified Code(s): Z96.651 - Presence of right artificial knee joint (3) Diabetes type 2, controlled Code(s): E11.9 - TYPE 2 DIABETES MELLITUS WITHOUT COMPLICATIONS Status: Chronic (4) Dyslipidemia Code(s): E78.5 - HYPERLIPIDEMIA, UNSPECIFIED Status: Chronic (5) Hypertension Code(s): I10 - ESSENTIAL (PRIMARY) HYPERTENSION Status: Chronic (6) Hypothyroidism Code(s): E03.9 - HYPOTHYROIDISM, UNSPECIFIED Status: Chronic (7) Paroxysmal atrial fibrillation Code(s): I48.0 - PAROXYSMAL ATRIAL FIBRILLATION Status: Chronic - Plan plan discussed w/ family, DVT proph w/SCDs add maalox & PPI. ASA BID for vt prophylaxis -: HD stable -: am labs.follow H/H -: hold metformin.increase ISS.Blood sugar under reasonable control -: IM team will follow * . Review of Systems - Review of Systems Constitutional: negative: fever, chills, sweats, weakness, malaise, other Respiratory: negative: Cough, Dry, Shortness of Breath, Hemoptysis, SOB with Excertion, Pleuritic Pain, Sputum, Wheezing Cardiovascular: negative: chest pain, palpitations, orthopnea, paroxysmal nocturnal dyspnea, edema, light headedness, other Gastrointestinal: negative: Nausea, Vomiting, Abdominal Pain, Diarrhea, Constipation, Melena, Hematochezia, Other Genitourinary: negative: Dysuria, Frequency, Incontinence, Hematuria, Retention , Other Musculoskeletal: negative: Neck Pain, Shoulder Pain, Arm Pain, Back Pain, Hand Pain, Leg Pain, Foot Pain, Other Neurological: negative: Weakness, Numbness, Incoordination, Change in Speech, Confusion, Seizures, Other - Medications/Allergies Allergies/Adverse Reactions: Allergies Allergy/AdvReac Type Severity Reaction Status Date / Time amoxicillin AdvReac Mild Rash Verified 09/11/18 09:08 Medications: Current Medications Acetaminophen (Tylenol) 650 mg PO Q4H PRN PRN Reason: Headache/Fever or Pain Hydrocodone Bitart/Acetaminophen ([place] 10/325) 1 tab PO Q4H PRN PRN Reason: Moderate Pain (4-6) Hydrocodone Bitart/Acetaminophen ([place] 10/325) 2 tab PO Q4H PRN PRN Reason: Severe Pain (7-10) Last Admin: 09/24/18 09:04 Dose: 2 tab Aspirin (Ecotrin) 81 mg PO BID [facility] Last Admin: 09/24/18 09:00 Dose: 81 mg Atorvastatin Calcium (Lipitor) 20 mg PO HS [facility] Last Admin: 09/23/18 21:01 Dose: 20 mg Calcium Carbonate (Tums) 1,000 mg PO Q4H PRN PRN Reason: Heartburn or Indigestion Last Admin: 09/24/18 09:03 Dose: 1,000 mg Dextrose/Water (Dextrose 50%) 25 gm SLOW IVP PRN PRN PRN Reason: Hypoglycemia Digoxin (Lanoxin) 0.125 mg PO MoWeFr@0900 [facility] Last Admin: 09/24/18 09:02 Dose: Not Given Diphenhydramine HCl (Benadryl) 25 mg PO Q6H PRN PRN Reason: Itching Fentanyl (Sublimaze) 50 mcg IV Q1H PRN PRN Reason: MOD PAIN Ferrous Gluconate (Fergon) 324 mg PO BID [facility] Last Admin: 09/24/18 09:00 Dose: 324 mg Glucagon (Glucagon) 1 mg IM PRN PRN PRN Reason: Hypoglycemia Ropivacaine 250 ml/ Device 250 mls @ 0 mls/hr NERVE BLCK INF [facility] Last Admin: 09/24/18 12:40 Dose: 250 mls Sodium Chloride (Normal Saline 0.9%) 1,000 mls @ 100 mls/hr IV .Q10H [facility] Last Admin: 09/24/18 06:09 Dose: Not Given Dextrose/Water (D5w) 1,000 mls @ 0 mls/hr IV .Q0M PRN PRN Reason: Hypoglycemia Insulin Human Lispro (Humalog) 0 units SC .MODERATE SLIDING SC PRN PRN Reason: Moderate Correctional Scale Iron/Minerals/Multivitamins (Theragran M) 1 tab PO DAILY [facility] Last Admin: 09/24/18 09:00 Dose: 1 tab Ketorolac Tromethamine (Toradol) 15 mg IVP Q8HR [facility] Stop: 09/25/18 14:01 Last Admin: 09/24/18 16:07 Dose: 15 mg Levothyroxine Sodium (Synthroid) 200 mcg PO 0600 [facility] Last Admin: 09/24/18 05:42 Dose: 200 mcg Mometasone Furoate (Asmanex Twisthaler) 1 puff INH 1830 [facility] Last Admin: 09/23/18 19:35 Dose: 1 puff Morphine Sulfate (Morphine) 2 mg SLOW IVP Q2H PRN PRN Reason: Moderate Pain (4-6) Morphine Sulfate (Morphine) 4 mg SLOW IVP Q2H PRN PRN Reason: Severe Pain (7-10) Last Admin: 09/23/18 11:51 Dose: 4 mg Nitroglycerin (Nitrostat) 0.4 mg SL Q5MIN PRN PRN Reason: Chest Pain Ondansetron HCl (Zofran) 4 mg IVP Q6H PRN PRN Reason: Nausea/Vomiting Promethazine HCl (Phenergan) 12.5 mg IM Q4H PRN PRN Reason: Nausea/Vomiting Senna/Docusate Sodium (Senokot S) 2 tab PO BID [facility] Last Admin: 09/24/18 09:03 Dose: 2 tab Sodium Chloride (Flush - Normal Saline) 10 ml IVF PRN PRN PRN Reason: Saline Flush Tramadol HCl (Ultram) 50 mg PO Q6H PRN PRN Reason: Mild Pain (1-3) Tramadol HCl (Ultram) 100 mg PO Q6H PRN PRN Reason: Moderate Pain 4-6 Last Admin: 09/24/18 05:58 Dose: 100 mg Zolpidem Tartrate (Ambien) 5 mg PO HSPRN PRN PRN Reason: Insomnia
[2018-09-24] MEDS ORDERED: Mag-Al 1200 mg/1200 mg/30 ML UDCUP PO PRN (16:16)
[2018-09-24] MEDS ORDERED: Bisacodyl 5 MG TAB PO PRN (16:16)
[2018-09-24] MEDS: Mometasone Furoate 120 PUFF 220 MCG INH SCH (19:20)
[2018-09-24] MEDS: Atorvastatin Calcium 20 MG TAB PO SCH (20:05)
[2018-09-25] MEDS: Sodium Chloride 0.9% 1,000 ML IV SCH ×2 (01:19→13:16)
[2018-09-25] MEDS: HYDROcodone/Acetaminophen 10/325 mg Tablet PO PRN ×2 (04:27→09:25)
[2018-09-25 04:40] LABS: Hemoglobin 10.5 g/dL (14.0-18.0); Mean Corpuscular HGB CONC 31.4 g/dL (32.0-36.0); Mean Corpuscular Hemoglobin 25.9 pg (27.0-31.0); Mean Corpuscular Volume 82.6 fL (78.0-98.0); Mean Platelet Volume 7.7 fL (7.4-10.4); Platelet Count 178 thou/uL (130-400); RBC Distribution Width 15.3 % (11.5-14.5); Red Blood Cell (RBC) Count 4.04 mill/uL (4.70-6.10); White Blood Cell (WBC) Count 8.9 thou/uL (4.8-10.8)
[2018-09-25 04:57] LABS: Anion Gap 10 mmol/L (10-20); BUN (Urea Nitrogen) 18 mg/dL (8.4-25.7); Calc. Creatinine Clearance 92 mL/min (70-130); Calcium 9.2 mg/dL (7.8-10.44); Carbon Dioxide 28 mmol/L (23-31); Chloride 104 mmol/L (98-107); Estimated GFR-MDRD 72; Glucose 108 mg/dL (83-110); Sodium 138 mmol/L (136-145)
[2018-09-25] MEDS: Ketorolac Tromethamine 30 MG/ML VIAL IVP SCH (05:25)
[2018-09-25] MEDS: Levothyroxine Sodium 100 MCG TAB PO SCH (05:25)
[2018-09-25] MEDS: Multivitamin W/ Minerals 1 TAB PO SCH (09:25)
[2018-09-25] MEDS: Senokot S 8.6-50 MG TAB PO SCH (09:25)
[2018-09-25] MEDS: Ferrous Gluconate 324 MG TAB PO SCH (09:25)
[2018-09-25] MEDS: Aspirin 81 mg Enteric Coated Tablet PO SCH (09:25)
[2018-09-25 12:04] VITALS: BP 117/69; TEMP 99.1
[2018-09-25] MEDS: traMADol HCl 50 MG TAB PO PRN (12:16)
== END 2018-09-25 13:00 | disposition home or self-care (01) | DRG 470 ==
LOC: SDC 06:17 → SJJU 10:37
PROVIDERS: ADMIT Orthopaedic Surgery; ATTEND Orthopaedic Surgery
PROC: 0SRC0J9 Replacement of Right Knee Joint with Synthetic Substitute, Cemented, Open Approach (ICD-10-PCS; principal; 2018-09-23)
DX: M17.11 Unilateral primary osteoarthritis, right knee (principal); E78.5 Hyperlipidemia, unspecified; I25.10 Atherosclerotic heart disease of native coronary artery without angina pectoris; E03.9 Hypothyroidism, unspecified; G47.33 Obstructive sleep apnea (adult) (pediatric); I71.4 Abdominal aortic aneurysm, without rupture; E11.9 Type 2 diabetes mellitus without complications; K21.9 Gastro-esophageal reflux disease without esophagitis; I10 Essential (primary) hypertension; I48.0 Paroxysmal atrial fibrillation; Z95.1 Presence of aortocoronary bypass graft; Z87.891 Personal history of nicotine dependence; Z79.82 Long term (current) use of aspirin; Z79.84 Long term (current) use of oral hypoglycemic drugs
CPT/HCPCS: 36415; 36416; 80048; 85027; C1713; C1776; J1100; J1885; J1956; J2001; J2250; J2270; J2405; J2704; J2795; J3010; J3370; J7050

== ENCOUNTER 2018-10-01 08:49 | Outpatient (CLI) | payer MEDICARE, BC ==
[~2018-10-01 08:49] MED LIST: ISOVUE-370 76%-LOCM 1 ML ONE
--- NOTE | 2018-10-01 11:39 | CT ---
CT CHEST AND ABDOMEN AND PELVIS WITH IV CONTRAST: INDICATIONS: History of abdominal aortic aneurysm repair with lung cancer. COMPARISON: CTA abdomen and pelvis dated 04/17/2018. CTs chest dated 03/23/2018 and 09/10/2016. CONTRAST: Isovue-370 80 mL. FINDINGS: There is stable post surgical change of a left lower lobectomy. Small left pleural effusion persists . Small pulmonary nodules within the right lung have been stable since August 2016. No new suspiciou s pulmonary nodule is evident. There is a stable calcified granuloma in the right lower lobe. There is scattered vascular calcification involving the thoracic aorta. There is a stable device see n within the region of the left atrial appendage. Post CABG change is stable. The endograft in the abdominal aorta is patent. The excluded aneurysmal sac measures 5.8 cm, which i s slightly smaller than the prior exam, where it measured 6.1 cm. There is no overt evidence of endo leak. Endovascular glue is seen within the excluded aneurysmal sac, likely related to treatment of a prior endoleak. There is mild fatty infiltration of the liver. The pancreas and adrenal glands are normal appearing. There are bilateral renal cysts. There is a mild amount of retained stool within the colon. There are a few scattered colonic diverticula without evidence of active diverticulitis. No drainable flu id collection is evident. No lymphadenopathy or free fluid is noted. No suspicious osteolytic or osteoblastic lesion is identified. There is a healed post surgical defor mity involving the left posterolateral chest wall. IMPRESSION: 1. Patent abdominal aortic endograft and biliac stent. Excluded aneurysmal sac is slightly smaller than on a recent comparison, dated 04/17/2018. There is no overt evidence to suggest endoleak. 2. Stable pulmonary nodules of the right lung. This has been stable since August 2016. 3. Stable post surgical changes of a left lower lobectomy, coronary artery bypass grafting, and abla tion of the atrial appendage. 4. Fatty liver. 5. Bilateral renal cysts. 6. Colonic diverticulosis. 7. Mild amount of retained stool within the colon. POS: [facility]
== END 2018-10-01 08:50 | disposition home or self-care (01) ==
LOC: BICCT 08:49
PROVIDERS: ATTEND Thoracic Surgery (Cardiothoracic Vascular Surgery)
DX: I71.4 Abdominal aortic aneurysm, without rupture (principal); R91.8 Other nonspecific abnormal finding of lung field; K76.0 Fatty (change of) liver, not elsewhere classified; N28.1 Cyst of kidney, acquired; K57.30 Diverticulosis of large intestine without perforation or abscess without bleeding; K59.00 Constipation, unspecified; Z98.890 Other specified postprocedural states
CPT/HCPCS: 71260; 74177; Q9966

== ENCOUNTER 2019-03-18 13:18 | Outpatient (CLI) | payer MEDICARE, BC ==
[2019-03-18 14:45] LABS: #Basophils 0.1 thou/uL (0.0-0.2); #Eosinphils 0.2 thou/uL (0.0-0.7); #Lymphocytes 2.2 thou/uL (1.20-3.40); #Monocytes 0.6 thou/uL (0.11-0.59); %Eosinophils 2.6 % (0.0-10.0); %Lymphocytes 31.2 % (21.0-51.0); %Monocytes 8.2 % (0.0-10.0); Hemoglobin 13.9 g/dL (14.0-18.0); Mean Corpuscular HGB CONC 33.6 g/dL (32.0-36.0); Mean Corpuscular Volume 83.2 fL (78.0-98.0); Mean Platelet Volume 8.1 fL (7.4-10.4); Platelet Count 186 thou/uL (130-400); RBC Distribution Width 17.1 % (11.5-14.5); Red Blood Cell (RBC) Count 4.98 mill/uL (4.70-6.10); White Blood Cell (WBC) Count 7.1 thou/uL (4.8-10.8)
[2019-03-18 14:51] LABS: INR-International Normal Ratio 1.1; Prothrombin Time 13.9 SEC (12.0-14.7)
[2019-03-18 15:03] LABS: Anion Gap 12 mmol/L (10-20); BUN (Urea Nitrogen) 24 mg/dL (8.4-25.7); Calc. Creatinine Clearance 0 mL/min (70-130); Calcium 9.6 mg/dL (7.8-10.44); Carbon Dioxide 26 mmol/L (23-31); Chloride 101 mmol/L (98-107); Estimated GFR-MDRD 59; Glucose 96 mg/dL (83-110); Potassium 4.3 mmol/L (3.5-5.1); Sodium 135 mmol/L (136-145)
--- NOTE | 2019-03-19 17:29 | EKG ---
Test Reason : Blood Pressure : / mmHG Vent. Rate : 065 BPM Atrial Rate : 059 BPM P-R Int : 000 ms QRS Dur : 088 ms QT Int : 420 ms P-R-T Axes : 000 -57 -36 degrees QTc Int : 436 ms Atrial fibrillation Left axis deviation Abnormal ECG Confirmed by CASANDRA BLAND ([id number]) on 03/19/2019 5:29:32 PM Referred By: CHACHO Confirmed By:CASANDRA BLAND
== END 2019-03-18 13:19 | disposition home or self-care (01) ==
LOC: LABBT 13:18
PROVIDERS: ATTEND Orthopaedic Surgery
DX: Z01.818 Encounter for other preprocedural examination (principal); M17.12 Unilateral primary osteoarthritis, left knee
CPT/HCPCS: 36415; 80048; 83036; 83540; 83550; 84439; 84443; 84481; 85025; 85610; 93005; 93010

== ENCOUNTER 2019-03-24 06:06 | Inpatient (IN) | payer MEDICARE, BC ==
[2019-03-18 13:38] VITALS: BMI 31.6
[2019-03-24] MEDS ORDERED: Vancomycin HCl 1.5 GM in Sodium Chloride 0.9% 250 ML 300 ML IVPB SCH (07:45)
[2019-03-24] MEDS ORDERED: Sodium Chloride 0.9% 100 ML ONE (08:00)
[2019-03-24] MEDS ORDERED: Tranexamic Acid 1,000 MG/10 ML VIAL ONE (08:00)
[2019-03-24] MEDS ORDERED: Fentanyl 100 MCG/2 ML VIAL ONE ×3 (08:07→11:49)
[2019-03-24] MEDS ORDERED: Midazolam HCl 2 mg/2 ml Vial ONE (08:07)
[2019-03-24] MEDS ORDERED: Levofloxacin 500 mg/D5W 100 ml Premix Bag ONE (08:40)
[2019-03-24] MEDS ORDERED: Ropivacaine HCl/PF 250 ML in Premix Bag 1 BAG NERVE BLCK SCH (08:43)
[2019-03-24] MEDS ORDERED: Ondansetron PF 4 MG/2 ML Vial IVP PRN ×2 (08:43→08:51)
[2019-03-24] MEDS ORDERED: HYDROcodone/Acetaminophen 10/325 mg Tablet PO PRN ×3 (08:43→08:51)
[2019-03-24] MEDS ORDERED: Zolpidem Tartrate 5 MG TAB PO PRN ×2 (08:43→08:51)
[2019-03-24] MEDS ORDERED: traMADol HCl 50 MG TAB PO PRN ×3 (08:43→08:51)
[2019-03-24] MEDS ORDERED: Promethazine HCl 25 MG/ML VIAL IM PRN ×3 (08:43→10:17)
[2019-03-24] MEDS ORDERED: Fentanyl 100 MCG/2 ML VIAL SLOW IVP PRN (08:44)
[2019-03-24] MEDS ORDERED: Acetaminophen 325 MG TAB PO PRN (08:51)
[2019-03-24] MEDS ORDERED: diphenhydrAMINE 25 MG CAP PO PRN (08:51)
[2019-03-24] MEDS ORDERED: Ketorolac Tromethamine 30 MG/ML VIAL IVP PRN (08:51)
[2019-03-24] MEDS ORDERED: Nitroglycerin 0.4 MG TAB (25 Tab Bottle) SL PRN (08:55)
[2019-03-24] MEDS ORDERED: LEVOTHYROXINE SODIUM PO SCH (09:00)
[2019-03-24] MEDS ORDERED: Non-Formulary Item 1 EACH (Multivitamin [Multi-Vitamin Daily] 1 TAB) PO SCH (09:00)
[2019-03-24] MEDS ORDERED: Digoxin 0.125 MG TAB PO SCH (09:00)
[2019-03-24] MEDS ORDERED: Non-Formulary Item 1 EACH (Fluticasone Propionate [Flovent Diskus] 50 MCG) IH SCH (09:00)
[2019-03-24] MEDS ORDERED: Non-Formulary Item 1 EACH (Ferrous Sulfate 325 MG) PO SCH (09:00)
[2019-03-24] MEDS ORDERED: Ferrous Gluconate 324 MG TAB PO SCH (09:00)
[2019-03-24] MEDS ORDERED: Non-Formulary Item 1 EACH (Folic Acid/Multivit-Min/Lutein [Centrum Silver Chewable] 1 TAB PO SCH (09:00)
[2019-03-24] MEDS ORDERED: Ondansetron HCl/PF 4 MG/2 ML Vial IVP PRN (10:17)
[2019-03-24] MEDS ORDERED: Promethazine HCl 25 MG/ML VIAL SLOW IVP PRN (10:17)
--- NOTE | 2019-03-24 11:25 | OP ---
DATE OF PROCEDURE: 03/24/2019 PREOPERATIVE DIAGNOSIS: End-stage tricompartmental osteoarthritis, left knee. POSTOPERATIVE DIAGNOSIS: End-stage tricompartmental osteoarthritis, left knee. PROCEDURES PERFORMED: Cemented cruciate sparing computer-assisted navigated left total knee arthroplasty. LINKER UP: Rodrigue Peter PA-C ANESTHESIA: General via LMA augmented with indwelling adductor canal block and a single-shot anterior sciatic block. COMPONENTS USED: [employer] triathlon primary size 5 cemented cruciate sparing femoral component with a primary size 5 cemented tibial baseplate, 9 mm polyethylene fixed bearing insert, and A35 patella button. TOURNIQUET TIME: 62 minutes at 300 mmHg. FINDINGS: End-stage severe degenerative tricompartmental disease, [id number] arthrosis, periarticular osteophyte formation, large serous effusion, hypertrophic synovium, and changes consistent with degenerative genu varum. ESTIMATED BLOOD LOSS: Less than 100. INPUT: 1 L of crystalloid. OUTPUT: None measured. No Stanley placed. INDICATION FOR SURGERY: Clovis is a 73-year-old white male, who has had progressive left knee pain and problem with standing and walking for the last 5 to 7 years. He has failed conservative management, elected to proceed with total knee arthroplasty as definitive treatment of his pain. PROCEDURE IN DETAIL: After informed consent was obtained in the preoperative holding area, the patient was taken to the operative suite where general anesthesia was induced. Once adequate level of general anesthesia was obtained, the patient was positioned and a well-padded tourniquet was placed around the left proximal thigh. The left lower extremity was then prepped and draped in the usual sterile fashion. Prior to exsanguination, a time-out was called and all members of the surgical team agreed upon site, surgeon, and patient. The extremity was then exsanguinated and the tourniquet was raised. A midline longitudinal incision was then made directly over the patella extending 2 fingerbreadths above the superior pole of the patella and 2 fingerbreadths inferior to the inferior patellar pole of the patella. Deeper subcutaneous layers were dissected sharply and local bleeding was controlled with Bovie electrocautery. A quad tendon longitudinal split was then made sharply and a median parapatellar arthrotomy was carried out both sharp and with Bovie electrocautery, carried down to 1 fingerbreadth medial to the tibial tubercle. The knee was then placed into flexion and the patella was everted nicely, and a copious fat pad ectomy was performed allowing for greater exposure of the tibia. The computer-assisted distal femoral fiducial was then placed and pinned firmly, and the distal femoral cutting guide was pinned firmly into place. The oscillating saw was then used to remove the appropriate amount of bone. The 4-in-1 cutting block was then placed on the distal femur and the oscillating saw was used to remove the appropriate amount of bone off the anterior, posterior, and chamfer cuts. After completion of bone cuts, the anterior cruciate ligament was resected sharply and the posterior cruciate ligament retractor was placed and the tibia was subluxed for better exposure. Partial meniscectomies were carried out, and the tibial computer-assisted fiducial was pinned, and the cutting guide was placed. Oscillating saw was then used to remove the bone, with Hohmann retractors used to take care and protect the collateral ligaments. After the tibial resection was performed, a laminar blacktop spreader was placed in between the freshened bone cuts. The knee placed at 90 degrees and further bilateral meniscectomies were carried out, and the curved osteotome and curettage were used to remove any excess bone spurs in the posterior compartment. The trial femoral component, tibial baseplate were placed with the appropriate polyethylene trial insert with an appropriate polyethylene spacer and patellar button. The knee was taken through full range of motion with flexion and extension from 0 to 90 degrees and patellar broach squarely in the trochlea without any squinting or subluxation noted. The knee was also stable to varus and valgus stressing at 0, 15, 45, and 90 degrees of flexion. The drawer was negative. All trial components were then removed and the keel punch was used to provide the appropriate defect in the tibia with a mallet. The freshened bone cuts were copiously irrigated with pulsatile lavage of about 1.5 L to remove all excess debris. The freshened bone cuts were then dried with suction and lap sponge. The knee was placed in flexion and retractors were placed to provide access to all bone cuts. Tobramycin-impregnated methyl methacrylate cement was then placed on the freshened bone cuts and implants which were malleted firmly into place. Curettage and [place] elevators were used to remove any excess bone cement. The knee was placed into full extension and the patellar button was placed under compression, and the cement was allowed to cure. Once completed, the components were again taken through full range of motion and copious irrigation of the knee was carried out with another liter of normal saline. All components were inspected fully with full range of motion and varus and valgus stressing. There was no laxity noted and full extension was observed clinically. Primary closure was accomplished with #2 interrupted Vicryl stitch of the arthrotomy defect. This was oversewn with a #2 running Quill barbed stitch. The gravitational platelet system was then injected into the arthrotomy prior to closure. The subcutaneous layer was then closed with a running 0 barbed Monocryl stitch and skin closure accomplished with a running subcuticular 3-0 Monocryl barbed Quill stitch and augmented with cement on the skin. Tourniquet was lowered. Good spontaneous return of distal pulses was noted clinically and a sterile dressing was applied to the incision. The procedure was terminated without any complications. The patient was awakened in the operative suite, and the patient was taken to the recovery room in stable condition. Job ID: [id number]
--- NOTE | 2019-03-24 11:45 | RAD ---
XR Knee Lt 2 View History: Total knee replacement Comparison: None. Findings: Satisfactory appearance left total knee arthroplasty and patellar resurfacing. Expected pos toperative gas and edema. Surgical clips along the right knee. Impression: Satisfactory postoperative appearance.
[2019-03-24] MEDS ORDERED: Labetalol HCl 100 MG/20 ML VIAL ONE (12:01)
[2019-03-24] MEDS: HYDROcodone/Acetaminophen 10/325 mg Tablet PO PRN (14:00)
[2019-03-24] MEDS: Ketorolac Tromethamine 30 MG/ML VIAL IVP SCH ×3 (14:01→23:20)
[2019-03-24] MEDS: Aspirin 81 mg Enteric Coated Tablet PO SCH ×2 (14:17→20:29)
[2019-03-24] MEDS: Multivitamin W/ Minerals 1 TAB PO SCH (14:17)
[2019-03-24] MEDS: Senokot S 8.6-50 MG TAB PO SCH ×2 (14:18→20:29)
[2019-03-24] MEDS: Sodium Chloride 0.9% 1,000 ML IV SCH ×3 (14:18→22:59)
[2019-03-24] MEDS: Clindamycin/D5W 900 MG in Premix Bag 1 BAG IVPB SCH ×2 (14:21→20:28)
[2019-03-24] MEDS ORDERED: Ropivacaine 0.2% HCl/PF (40 MG/20 ML VIAL) ONE (15:02)
[2019-03-24] MEDS ORDERED: Bupivacaine HCl 0.5%/Epinephrine 1:200,000/PF 30 ml Vial ONE (15:02)
[2019-03-24] MEDS ORDERED: PROPOFOL 200 MG/20 ML VIAL ONE (15:09)
[2019-03-24] MEDS ORDERED: Lidocaine 1% PF 5 ML VIAL ONE (15:09)
[2019-03-24] MEDS ORDERED: Ondansetron PF 4 MG/2 ML Vial ONE (15:09)
--- NOTE | 2019-03-24 16:02 | PDOC.HOSPP ---
- Subjective Encounter Date: 03/24/19 Encounter Time: 16:00 Subjective: pt is admitted for left total knee replacement, consulted for medical management Patient seen and examined. No new complaints. - Objective Vital Signs & Weight: Vital Signs (12 hours) Temp Pulse Resp BP Pulse Ox 03/24/19 13:00 97.5 F L 68 20 148/90 H 97 Weight Weight 240 lb Additional Labs: old labs and hospital record reviewed Radiology Reviewed by me: Yes (knee xray reviewed) Hospitalist ROS - Review of Systems ENT: denies: ear pain, ear discharge, nose pain, nose discharge, nose congestion , mouth pain, mouth swelling, throat pain, throat swelling, other Respiratory: denies: cough, dry, shortness of breath, hemoptysis, SOB with excertion, pleuritic pain, sputum, wheezing, other Cardiovascular: denies: chest pain, palpitations, orthopnea, paroxysmal noc. dyspnea, edema, light headedness, other Gastrointestinal: denies: nausea, vomitting, abdominal pain, diarrhea, constipation, melena, hematochezia, other Genitourinary: denies: dysuria, frequency, incontinence, hematuria, retention, other Musculoskeletal: denies: neck pain, shoulder pain, arm pain, back pain, hand pain, leg pain, foot pain, other - Medication Medications: Active Medications Generic Name Dose Route Start Last Admin Trade Name Freq PRN Reason Stop Dose Admin Hydrocodone Bitart/Acetaminophen 1 tab 03/24/19 08:43 03/24/19 14:00 [employer] 10/325 PO 1 tab Q4H PRN Administration Pain (1-3) Aspirin 81 mg 03/24/19 09:00 03/24/19 14:17 Ecotrin PO Not Given BID CRISTO Clindamycin Phosphate/Dextrose 50 mls @ 100 mls/hr 03/24/19 14:00 03/24/19 14 :21 900 mg/ Device IVPB 03/24/19 20:29 50 mls Q6H CRISTO Administration Sodium Chloride 1,000 mls @ 100 mls/hr 03/24/19 09:00 03/24/19 14:18 Normal Saline 0.9% IV Not Given .Q10H CRISTO Iron/Minerals/Multivitamins 1 tab 03/24/19 09:00 03/24/19 14:17 Theragran M PO Not Given DAILY CRISTO Ketorolac Tromethamine 15 mg 03/24/19 12:00 03/24/19 14:01 Toradol IVP 03/26/19 06:01 15 mg Q6HR [facility] Administration Senna/Docusate Sodium 2 tab 03/24/19 09:00 03/24/19 14:18 Senokot S PO Not Given BID [facility] - Exam General Appearance: NAD, awake alert Eye: PERRL, anicteric sclera ENT: normocephalic atraumatic, no oropharyngeal lesions Neck: supple, symmetric, no JVD, no thyromegaly Heart: RRR, no murmur, no gallops, no rubs Respiratory: CTAB, no wheezes, no rales, no ronchi Gastrointestinal: soft, non-tender, non-distended, normal bowel sounds Extremities: no cyanosis, no clubbing, no edema Extremeties - other findings: left knee with dressing, nerve block in place Skin: normal turgor, no lesions Neurological: CN's grossly intact, normal sensation to touch, no focal deficits Musculoskeletal: normal tone, normal strength, no muscle wasting Psychiatric: normal affect, normal behavior Hosp A/P (1) Status post total left knee replacement Code(s): Z96.652 - PRESENCE OF LEFT ARTIFICIAL KNEE JOINT Status: Acute (2) AAA (abdominal aortic aneurysm) Code(s): I71.4 - ABDOMINAL AORTIC ANEURYSM, WITHOUT RUPTURE Status: Chronic Qualifiers: Presence of rupture: without rupture Qualified Code(s): I71.4 - Abdominal aortic aneurysm, without rupture (3) CAD (coronary artery disease) Code(s): I25.10 - ATHSCL HEART DISEASE OF [place] CORONARY ARTERY W/O ANG PCTRS Status: Chronic (4) Diabetes type 2, controlled Code(s): E11.9 - TYPE 2 DIABETES MELLITUS WITHOUT COMPLICATIONS Status: Chronic (5) Diverticulosis Code(s): K57.90 - DVRTCLOS OF INTEST, PART UNSP, W/O PERF OR ABSCESS W/O BLEED Status: Chronic (6) Dyslipidemia Code(s): E78.5 - HYPERLIPIDEMIA, UNSPECIFIED Status: Chronic (7) Gout Code(s): M10.9 - GOUT, UNSPECIFIED Status: Chronic (8) Hypertension Code(s): I10 - ESSENTIAL (PRIMARY) HYPERTENSION Status: Chronic (9) Hypothyroidism Code(s): E03.9 - HYPOTHYROIDISM, UNSPECIFIED Status: Chronic (10) Internal hemorrhoid, bleeding Code(s): K64.8 - OTHER HEMORRHOIDS Status: Chronic (11) Obesity (BMI 30.0-34.9) Code(s): E66.9 - OBESITY, UNSPECIFIED Status: Chronic (12) Paroxysmal atrial fibrillation Code(s): I48.0 - PAROXYSMAL ATRIAL FIBRILLATION Status: Chronic - Plan old records reviewed/req, plan discussed w/ family, PT/OT Continue aspirin for DVT prophylaxis as per protocol Home medication has been reconciled Medically stable continue PT/OT as per protocol Nerve block as per anesthesia Medication reviewed as above Symptomatic treatment Pain control code status - full code
[2019-03-24] MEDS ORDERED: Dextrose 5% in Water 1,000 ML IV PRN (16:05)
[2019-03-24] MEDS ORDERED: HumaLOG 300 UNITS/3 ML VIAL SC PRN ×2 (16:05)
[2019-03-24] MEDS ORDERED: Dextrose 50% Abboject 50 ML SYRINGE SLOW IVP PRN (16:05)
[2019-03-24] MEDS: metFORMIN 500 MG TAB PO SCH (17:34)
[2019-03-24] MEDS: Mometasone Furoate 120 PUFF 220 MCG INH SCH (18:54)
[2019-03-24] MEDS: Atorvastatin Calcium 20 MG TAB PO SCH (20:29)
[2019-03-24] MEDS ORDERED: Simvastatin 40 MG TAB PO SCH (21:00)
[2019-03-25] MEDS: HYDROcodone/Acetaminophen 10/325 mg Tablet PO PRN ×5 (03:46→20:50)
[2019-03-25 04:37] LABS: Hemoglobin 11.7 g/dL (14.0-18.0); Mean Corpuscular HGB CONC 32.9 g/dL (32.0-36.0); Mean Corpuscular Hemoglobin 28.2 pg (27.0-31.0); Mean Corpuscular Volume 85.8 fL (78.0-98.0); Mean Platelet Volume 7.8 fL (7.4-10.4); Platelet Count 140 thou/uL (130-400); RBC Distribution Width 17.1 % (11.5-14.5); Red Blood Cell (RBC) Count 4.13 mill/uL (4.70-6.10); White Blood Cell (WBC) Count 8.5 thou/uL (4.8-10.8)
[2019-03-25] MEDS: Levothyroxine 150 MCG TAB PO SCH (05:38)
[2019-03-25] MEDS: Ketorolac Tromethamine 30 MG/ML VIAL IVP SCH ×4 (05:38→23:59)
[2019-03-25] MEDS: Vit A,C & E/Lutein/Minerals Tablet PO SCH (08:22)
[2019-03-25] MEDS: Ferrous Sulfate 325 MG TAB PO SCH (08:23)
[2019-03-25] MEDS: Multivitamin W/ Minerals 1 TAB PO SCH (08:24)
[2019-03-25] MEDS: metFORMIN 500 MG TAB PO SCH ×2 (08:24→18:37)
[2019-03-25] MEDS: Aspirin 81 mg Enteric Coated Tablet PO SCH ×2 (08:24→19:54)
[2019-03-25] MEDS: Senokot S 8.6-50 MG TAB PO SCH ×2 (08:24→19:54)
[2019-03-25] MEDS ORDERED: Multivit, Therapeutic 1 TAB PO SCH (09:00)
[2019-03-25] MEDS: Sodium Chloride 0.9% 1,000 ML IV SCH ×2 (15:55→19:55)
--- NOTE | 2019-03-25 16:34 | PDOC.HOSPP ---
- Subjective Encounter Date: 03/25/19 Encounter Time: 11:20 Subjective: Pt seen for followup re: DM2. Feels well, no complaints. - Objective Vital Signs & Weight: Vital Signs (12 hours) Temp Pulse Resp BP Pulse Ox 03/25/19 15:18 98.8 F 77 16 136/76 95 03/25/19 12:45 98.2 F 87 18 125/68 93 L 03/25/19 08:00 95 03/25/19 07:35 98.5 F 89 20 163/85 H 95 Weight Admit Weight 240 lb Weight 240 lb I&O: 03/24/19 03/25/19 03/26/19 06:59 06:59 06:59 Intake Total 860 Balance 860 Result Diagrams: 03/25/19 04:27 Additional Labs: Accuchecks 03/25/19 03/25/19 03/25/19 15:20 12:49 05:10 POC Glucose 115 H 155 H 118 H 03/24/19 03/24/19 21:12 07:43 POC Glucose 146 H 108 Labs and MARs reviewed by ct Hospitalist ROS - Review of Systems Cardiovascular: denies: chest pain, palpitations, orthopnea, paroxysmal noc. dyspnea, edema, light headedness Gastrointestinal: denies: nausea, vomiting, abdominal pain, diarrhea, constipation, melena, hematochezia - Medication Medications: Active Medications Generic Name Dose Route Start Last Admin Trade Name Freq PRN Reason Stop Dose Admin Hydrocodone Bitart/Acetaminophen 1 tab 03/24/19 08:43 03/25/19 12:49 [employer] 10/325 PO 1 tab Q4H PRN Administration Pain (1-3) Hydrocodone Bitart/Acetaminophen 2 tab 03/24/19 08:43 03/24/19 20:38 [employer] 10/325 PO 2 tab Q4H PRN Administration PAIN (4-6) Aspirin 81 mg 03/24/19 09:00 03/25/19 08:24 Ecotrin PO 81 mg BID RCISTO Administration Atorvastatin Calcium 20 mg 03/24/19 21:00 03/24/19 20:29 Lipitor PO 20 mg HS CRISTO Administration Ferrous Sulfate 325 mg 03/25/19 09:00 03/25/19 08:23 Feosol PO 325 mg DAILY CRISTO Administration Ropivacaine 250 ml/ Device 250 mls @ 10 mls/hr 03/24/19 08:43 03/25/19 12:20 NERVE BLCK 250 mls INF CRISTO Administration Sodium Chloride 1,000 mls @ 100 mls/hr 03/24/19 09:00 03/25/19 15:55 Normal Saline 0.9% IV Not Given .Q10H CRISTO Iron/Minerals/Multivitamins 1 tab 03/24/19 09:00 03/25/19 08:24 Theragran M PO 1 tab DAILY CRISTO Administration Ketorolac Tromethamine 15 mg 03/24/19 12:00 03/25/19 12:50 Toradol IVP 03/26/19 06:01 15 mg Q6HR CRISTO Administration Levothyroxine Sodium 150 mcg 03/25/19 06:00 03/25/19 05:38 Synthroid PO 150 mcg 0600 CRISTO Administration Metformin HCl 500 mg 03/24/19 17:00 03/25/19 08:24 Glucophage PO 500 mg BID-WM CRISTO Administration Metoprolol Succinate 25 mg 03/25/19 09:00 03/25/19 08:23 Toprol Xl PO 25 mg DAILY CRISTO Administration Mometasone Furoate 1 puff 03/24/19 18:30 03/24/19 18:54 Asmanex Twisthaler INH Not Given 1830 CRISTO Multivitamins/Minerals 1 tab 03/25/19 09:00 03/25/19 08:22 Ocuvite With Lutein PO 1 tab DAILY CRISTO Administration Senna/Docusate Sodium 2 tab 03/24/19 09:00 03/25/19 08:24 Senokot S PO 2 tab BID CRISTO Administration - Exam General - other findings: Obese Eye: anicteric sclera ENT: moist mucosa Neck: supple Heart: RRR Respiratory: CTAB Gastrointestinal: soft, non-tender Extremeties - other findings: s/p L knee surgery Skin: normal turgor Neurological: no weakness Psychiatric: normal affect, normal behavior Hosp A/P (1) Diabetes type 2, controlled Code(s): E11.9 - TYPE 2 DIABETES MELLITUS WITHOUT COMPLICATIONS Status: Chronic (2) CAD (coronary artery disease) Code(s): I25.10 - ATHSCL HEART DISEASE OF [place] CORONARY ARTERY W/O ANG PCTRS Status: Chronic (3) Dyslipidemia Code(s): E78.5 - HYPERLIPIDEMIA, UNSPECIFIED Status: Chronic (4) Gout Code(s): M10.9 - GOUT, UNSPECIFIED Status: Chronic (5) Hypertension Code(s): I10 - ESSENTIAL (PRIMARY) HYPERTENSION Status: Chronic (6) Obesity (BMI 30.0-34.9) Code(s): E66.9 - OBESITY, UNSPECIFIED Status: Chronic - Plan plan discussed w/ family, PT/OT, out of bed/ambulate HTN controlled. Reasonable control of blood sugars. CAD stable.
[2019-03-25] MEDS: Mometasone Furoate 120 PUFF 220 MCG INH SCH (18:19)
[2019-03-25] MEDS: Atorvastatin Calcium 20 MG TAB PO SCH (19:54)
[2019-03-26] MEDS: Levothyroxine 150 MCG TAB PO SCH (05:11)
[2019-03-26] MEDS: HYDROcodone/Acetaminophen 10/325 mg Tablet PO PRN ×2 (05:12→09:28)
[2019-03-26] MEDS: Ketorolac Tromethamine 30 MG/ML VIAL IVP SCH (05:14)
[2019-03-26 05:18] LABS: Mean Corpuscular HGB CONC 32.8 g/dL (32.0-36.0); Mean Corpuscular Hemoglobin 27.8 pg (27.0-31.0); Mean Platelet Volume 8.4 fL (7.4-10.4); Platelet Count 136 thou/uL (130-400); RBC Distribution Width 17.2 % (11.5-14.5); Red Blood Cell (RBC) Count 3.93 mill/uL (4.70-6.10); White Blood Cell (WBC) Count 8.5 thou/uL (4.8-10.8)
[2019-03-26 08:09] VITALS: BP 143/82; TEMP 97.9
[2019-03-26] MEDS: metFORMIN 500 MG TAB PO SCH (09:15)
[2019-03-26] MEDS: Senokot S 8.6-50 MG TAB PO SCH (09:16)
[2019-03-26] MEDS: Vit A,C & E/Lutein/Minerals Tablet PO SCH (09:17)
[2019-03-26] MEDS: Ferrous Sulfate 325 MG TAB PO SCH (09:17)
[2019-03-26] MEDS: Multivitamin W/ Minerals 1 TAB PO SCH (09:18)
[2019-03-26] MEDS: Aspirin 81 mg Enteric Coated Tablet PO SCH (09:28)
[2019-03-26] MEDS: Sodium Chloride 0.9% 1,000 ML IV SCH (13:22)
== END 2019-03-26 12:56 | disposition home or self-care (01) | DRG 470 ==
LOC: SDC 06:06 → SJJU 11:52
PROVIDERS: ADMIT Orthopaedic Surgery; ATTEND Orthopaedic Surgery
PROC: 0SRD0J9 Replacement of Left Knee Joint with Synthetic Substitute, Cemented, Open Approach (ICD-10-PCS; principal; 2019-03-24)
PROC: 8E0YXBZ Computer Assisted Procedure of Lower Extremity (ICD-10-PCS; 2019-03-24)
DX: M17.12 Unilateral primary osteoarthritis, left knee (principal); I71.4 Abdominal aortic aneurysm, without rupture; I25.10 Atherosclerotic heart disease of native coronary artery without angina pectoris; E11.9 Type 2 diabetes mellitus without complications; K57.90 Diverticulosis of intestine, part unspecified, without perforation or abscess without bleeding; E78.5 Hyperlipidemia, unspecified; M10.9 Gout, unspecified; E03.9 Hypothyroidism, unspecified; K64.8 Other hemorrhoids; E66.9 Obesity, unspecified; I48.0 Paroxysmal atrial fibrillation; Z68.31 Body mass index [BMI] 31.0-31.9, adult; Z88.6 Allergy status to analgesic agent; I10 Essential (primary) hypertension
CPT/HCPCS: 36415; 36416; 85027; C1713; C1776; J0670; J0690; J1885; J1956; J2001; J2250; J2405; J2704; J2795; J3010; J3370; J3490; J7050

== ENCOUNTER 2019-06-02 14:22 | Outpatient (CLI) | payer MEDICARE, BC ==
--- NOTE | 2019-06-02 14:58 | RAD ---
EXAM: Chest PA and lateral: HISTORY: Dyspnea COMPARISON: 01/08/2018 FINDINGS: Stable sternotomy wires Heart: Normal cardiac silhouette Aorta: Atherosclerosis Pulmonary vessels: Normal Costophrenic angles: Small umbilical opacity in the left lung base may represent pleural fluid Lungs: No consolidation or masses. Pneumothorax: No pneumothorax Osseous structures: No osseous abnormalities IMPRESSION: Small left-sided pleural effusion.
== END 2019-06-02 14:23 | disposition home or self-care (01) ==
LOC: RAD 14:22
PROVIDERS: ATTEND Internal Medicine Pulmonary Disease
DX: R06.00 Dyspnea, unspecified (principal); J90 Pleural effusion, not elsewhere classified
CPT/HCPCS: 71046

== ENCOUNTER 2019-07-16 07:59 | Outpatient (CLI) | payer MEDICARE, BC ==
--- NOTE | 2019-07-16 08:26 | RAD ---
EXAM: Chest Two Views 07/16/2019 8:22 AM HISTORY: History of lung cancer COMPARISON: None. FINDINGS: Heart: Normal in size and contour. There are stable post-CABG change Pulmonary vessels: Normal. Costophrenic angles: Stable small left pleural effusion Lungs: There is persistent scarring within the left lower lobe and lingula. Pneumothorax: None. Osseous structures:Left chest wall deformity persists. No acute osseous abnormality is demonstrated Additional findings: None. IMPRESSION: Stable small left pleural effusion. Persistent scarring in the left lower lobe and lingula.
== END 2019-07-16 08:00 | disposition home or self-care (01) ==
LOC: BICRAD 07:59
PROVIDERS: ATTEND Internal Medicine Medical Oncology
DX: C34.32 Malignant neoplasm of lower lobe, left bronchus or lung (principal); J90 Pleural effusion, not elsewhere classified; J98.4 Other disorders of lung
CPT/HCPCS: 36415; 71046; 80053; 82248; 82378; 83615; 84100; 84550

== ENCOUNTER 2020-01-12 09:14 | Outpatient (CLI) | payer MEDICARE, BC ==
--- NOTE | 2020-01-12 09:35 | RAD ---
EXAM: Chest 2 views: HISTORY: Lung cancer COMPARISON: 07/16/2019 FINDINGS: There is a normal-sized cardiomediastinal silhouette. The patient is status post sternotomy. There is no evidence of consolidation, mass, or pleural effusion. There are multiple stable left rib deformities. IMPRESSION: No evidence of acute cardiopulmonary disease
== END 2020-01-12 09:15 | disposition home or self-care (01) ==
LOC: BICRAD 09:14
PROVIDERS: ATTEND Internal Medicine Medical Oncology
DX: C34.32 Malignant neoplasm of lower lobe, left bronchus or lung (principal)
CPT/HCPCS: 71046

== ENCOUNTER 2020-09-21 10:12 | Outpatient (CLI) | payer MEDICARE, BC | END 2020-09-21 10:13 | disposition home or self-care (01) | LOC: BICMAMMO 10:12 | PROVIDERS: ATTEND Family Medicine | DX: Z13.820 Encounter for screening for osteoporosis (principal); Z79.52 Long term (current) use of systemic steroids | CPT/HCPCS: 77080 ==